=== PATIENT | male | born 1965 | race Caucasian/White ===

== ENCOUNTER 2020-09-14 14:09 | Outpatient (CLI) | payer BC, SELFPAY ==
--- NOTE | 2020-09-14 14:15 | ECG_ITS ---
Measurements Intervals [place] Rate: 73 P: 69 [place]: 167 QRS: 77 QRSD: 103 T: 26 QT: 372 QTc: 411 Interpretive Statements SINUS RHYTHM CANNOT RULE OUT SEPTAL INFARCT, AGE INDETERMINATE BORDERLINE ST-T WAVE ABNORMALITY- INFERIOR LEADS BASELINE ARTIFACT- I, III, AVL, V4-V6 ABNORMAL ECG Electronically Signed On 09-14-2020 14:36:38 CDT by Adalid Moralez D.O.
== END 2020-09-14 14:10 | disposition home or self-care (01) ==
LOC: ANHSURGERY 14:11
PROVIDERS: PCP Family Medicine Sports Medicine; Visit Provider Surgery
DX: K40.90 Unilateral inguinal hernia, without obstruction or gangrene, not specified as recurrent (principal); Z01.818 Encounter for other preprocedural examination; I10 Essential (primary) hypertension; R94.31 Abnormal electrocardiogram [ECG] [EKG]
CPT/HCPCS: 36415; 86850; 86900; 86901; 93005

== ENCOUNTER → 2020-09-16 00:16 | Outpatient (CLI) | payer BC, SELFPAY ==
[2020-09-16 19:13] LABS: SARS-CoV-2 RNA PCR Negative
== END ==
PROVIDERS: PCP Family Medicine Sports Medicine; Visit Provider Surgery
DX: Z01.812 Encounter for preprocedural laboratory examination (principal); Z20.822 Contact with and (suspected) exposure to COVID-19
CPT/HCPCS: C9803; U0003; U0005

== ENCOUNTER 2020-09-20 02:36 | Day surgery (SDC) | payer BC, SELFPAY ==
[2020-09-12 14:02] VITALS: BMI 25.4
[2020-09-20] VITALS (10 sets, daily range): BP systolic 126–151; BP diastolic 75–96; PULSE 50–66; RESP 10–20; TEMP 36.1; O2SAT 99–100
[2020-09-20] MEDS: ACETAMINOPHEN 500 MG TABLET 1000 MG PO (06:33)
[2020-09-20] MEDS: LACTATED RINGERS 1,000 ML 30 ML IV CONT ×2 (06:45→08:47)
[2020-09-20] MEDS: KETOROLAC 15 MG/ML VIAL (*BKC) IV PUSH (06:47)
--- NOTE | 2020-09-20 06:52 | WPDANESEPPF ---
Anes - Initial Pre Proc Eval Procedure: Operation Date: 09/20/20 07:30 Proposed Procedures p Laparoscopic Right Inguinal Hernia Repair with Mesh, Davinci Assisted - Ji Petersen DO Date/Time: 09/20/20 06:52 Surgeon: Ji Petersen DO Pre Op Diagnosis: right inguinal hernia Patient Data Age: 55 Gender: M Height: 6 ft 1 in Weight: 89.5 kg Allergies Allergy/AdvReac Type Severity Reaction Status Date / Time lisinopril AdvReac Mild Cough Verified 09/20/20 06:24 Home Medications Medication Instructions Recorded Confirmed Type irbesartan 300 mg tablet 300 mg PO DAILY 08/02/20 09/12/20 History omeprazole 40 mg capsule,delayed 40 mg PO DAILY 08/02/20 09/12/20 History release tamsulosin 0.4 mg capsule 0.4 mg PO DAILY 08/02/20 09/12/20 History testosterone 1 packet TRANSDERMAL DAILY 08/02/20 09/12/20 History Adult Probiotic 1 cap PO DAILY 09/12/20 09/12/20 History Calcium-Vitamin D 1 cap PO DAILY 09/12/20 09/12/20 History Daily Multivitamin 1 cap PO DAILY 09/12/20 09/12/20 History Fish Oil 1 cap PO DAILY 09/12/20 09/12/20 History turmeric 1 cap PO DAILY 09/12/20 09/12/20 History Patient hx anesthesia problems: none Family hx anesthesia problems: none PMFSH Past Medical History Medical History GERD (gastroesophageal reflux disease) High cholesterol History of bronchitis HTN (hypertension) Surgical History Surgical History History of carpal tunnel release History of colonoscopy Approximately 9 years ago Hx of decompression of ulnar nerve Hx of foot surgery Hx of left inguinal hernia repair Open left inguinal hernia repair Open recurrent left inguinal hernia repair with mesh Hx of right knee surgery Family History Family History Father MVA (motor vehicle accident) Mother Breast cancer Grandparent Breast cancer Stomach cancer Sibling Obesity Social History Social History Smoking status: Never smoker Alcohol intake: current Substance use: never Living arrangements: with family 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 Questions were solicited and answers provided to the satisfaction of the patient/family/POA.
--- NOTE | 2020-09-20 07:20 | WPDHPUPDATE1 ---
History and Physical Update Update Date/Time: 09/20/20 07:20 History and Physical has been reviewed, including an updated exam of the patient. There are NO changes in the patient's condition. Risks, benefits, and alternatives have been discussed and questions answered. Patient agrees to proceed with procedure.
--- NOTE | 2020-09-20 07:20 | PM.IMHP ---
H&P: HPI History of Present Illness Date/Time: 09/20/20 07:20 55 yo man presents for right inguinal hernia repair. No changes since last seen in office. Chief Complaint: [facility] Review of Systems Review of Systems: All systems reviewed & are unremarkable except as noted in HPI and below Constitutional: Constitutional: Denies chills, Denies fever(s), Denies headache(s) and Denies weight loss Eyes: Eyes: Denies change in vision ENT: Denies dizziness, Denies headache(s), Denies neck mass and Denies throat swelling Cardiovascular: Cardiovascular: Denies chest pain, Denies lightheadedness and Denies dyspnea Respiratory: Respiratory: Denies cough, Denies dyspnea and Denies wheezing Gastrointestinal: Gastrointestinal: Denies abdominal pain, Denies change in bowel habits, Denies nausea and Denies vomiting Genitourinary: Genitourinary: Denies hematuria and Denies dysuria Musculoskeletal: Musculoskeletal: Reports as per HPI Integumentary/Breasts: Skin/Breast: Reports as per HPI Neurologic: Denies dizziness and Denies headache(s) Allergic/Immunologic: Allergic/Immunologic: Denies throat swelling and Denies wheezing [facility] Past Medical History Medical History GERD (gastroesophageal reflux disease) High cholesterol History of bronchitis HTN (hypertension) Surgical History Surgical History History of carpal tunnel release History of colonoscopy Approximately 9 years ago Hx of decompression of ulnar nerve Hx of foot surgery Hx of left inguinal hernia repair Open left inguinal hernia repair Open recurrent left inguinal hernia repair with mesh Hx of right knee surgery Family History Family History Father MVA (motor vehicle accident) Mother Breast cancer Grandparent Breast cancer Stomach cancer Sibling Obesity Social History Social History Smoking status: Never smoker Alcohol intake: current Substance use: never Living arrangements: with family 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 Spiritual care concerns: No Meds Home Medications and Allergies Home Medications Medication Instructions Recorded Confirmed Type irbesartan 300 mg tablet 300 mg PO DAILY 08/02/20 09/12/20 History omeprazole 40 mg capsule,delayed 40 mg PO DAILY 08/02/20 09/12/20 History release tamsulosin 0.4 mg capsule 0.4 mg PO DAILY 08/02/20 09/12/20 History testosterone 1 packet TRANSDERMAL DAILY 08/02/20 09/12/20 History Adult Probiotic 1 cap PO DAILY 09/12/20 09/12/20 History Calcium-Vitamin D 1 cap PO DAILY 09/12/20 09/12/20 History Daily Multivitamin 1 cap PO DAILY 09/12/20 09/12/20 History Fish Oil 1 cap PO DAILY 09/12/20 09/12/20 History turmeric 1 cap PO DAILY 09/12/20 09/12/20 History Allergies Allergy/AdvReac Type Severity Reaction Status Date / Time lisinopril AdvReac Mild Cough Verified 09/20/20 06:24 Vital Signs Vital Signs - 24 hr 09/20/20 06:56 Temperature 36.1 C L Pulse Rate 59 L Respiratory Rate 16 Blood Pressure 147/75 H Pulse Oximetry 100 Exam Const: General: no acute distress and alert Orientation/consciousness: patient oriented x3 HENMT: Head: normocephalic and atraumatic Ears: hearing grossly normal bilaterally General nose exam: Normal nares present Mouth: Yes Normal oral and palatal mucosa present Eyes: Periorbital: periorbital findings normal Sclera: sclerae normal EOM: EOMs intact bilaterally Neck: Neck: normal visual inspection, no lymphadenopathy and trachea midline Chest: Chest palpation & inspection: normal inspection of the chest Resp: Effort & Inspection: normal respiratory effort Auscultation: clear to auscultation bilaterally Cardio: Jugular venous distension: no JVD Rate: regular rate Rhythm: regular rhy
[2020-09-20] MEDS: ceFAZolin 2 GM/D5W 50 ML 2 GM/50 ML BAG IVPB (07:27)
[2020-09-20] MEDS: BUPIVACAINE/EPINEPHRINE 0.5% 30 ML VIAL INFILTRATE (08:09)
--- NOTE | 2020-09-20 08:54 | PM.PROC ---
Procedure Note - Detailed Date of procedure: 09/20/20 Pre-op diagnosis: right inguinal hernia Post-op diagnosis: same (Indirect RIH) Procedure performed: Laparoscopic right inguinal hernia repair with Progrip mesh, da Gisella assisted Description of procedure: Procedure as well as risks, benefits, and alternatives were discussed with the patient. Written consent was obtained and placed in chart prior to procedure. Patient was brought back to surgical suite. He was placed supine on operating table. Time-out was done to confirm patient and procedure. he was then intubated by Anesthesia Department. his abdomen was prepped and draped in sterile fashion using chlorhexidine prep. 0.5% bupivacaine with epinephrine was infiltrated at each location for incision. A 12 millimeter transverse incision was made just superior to the umbilicus using a 15 blade scalpel. Blunt dissection was carried out down to the linea alba. A vertical incision was made at the linea alba using a 15 blade scalpel. The peritoneum was then bluntly entered. A 12 millimeter trocar was inserted and carbon dioxide insufflation was used to create a pneumoperitoneum. A camera was inserted and the abdominal cavity was inspected. The patient was placed in slight Trendelenburg position. An 8 millimeter incision was made on the right lateral abdomen and an 8 millimeter trocar was inserted under direct visualization. Another 8 millimeter incision was made in the left lateral abdomen and an 8 millimeter trocar was inserted under direct visualization. The robotic arms were brought up to the patient's bedside and secured to the ports. The camera and instruments were inserted. I then moved over to the robotic console and took control of the camera and instruments. After careful inspection of the abdominal cavity, I began scoring the peritoneum along the right lower quadrant using scissors with electrocautery. The preperitoneal plane was entered and this was carefully dissected caudally along the inferior epigastric vessels. Careful dissection with scissors with electrocautery and blunt dissection was used to continue this dissection. I dissected far enough laterally to allow for mesh placement, and also dissected medially to identify the pubic arch and Noel's ligament. The hernia sac was identified and carefully dissected posteriorly. The cord contents were also identified and the peritoneum was carefully dissected far enough posteriorly to allow for mesh placement. Once an adequate pocket was created, I then placed the mesh within the preperitoneal pocket and carefully unfolded it. The mesh was centered on the hernia defect with adequate overlap circumferentially. The inferior edge of the mesh was inspected to ensure that it was far enough away from the peritoneal edge. The mesh appeared in proper position overlying the entire myopectineal orifice. The peritoneum was then closed over the mesh using a 3-0 V-lock running absorbable suture. The robotic instruments were removed. The robotic arms were disengaged from the ports and moved away from the bedside. The patient was flattened out in bed, the ports were removed under direct visualization, and the pneumoperitoneum was released. The fascia of the umbilical incision was approximated using an 0 Vicryl [id number] suture. The skin of the incisions was approximated using 4-0 Monocryl subcuticular suture, and Exofin glue was applied on top. The patient was awakened from anesthesia, extubated, and transferred to recovery. Implants: Progrip Mesh 10cm x 15cm Anesthesia: GETA and local (0.5% bupivicaine with epi) Surgeon: Ji Petersen DO Estimated blood loss (mL): 5 Drains: No Packing: No Pathology: none sent Complications: No immediate complications Condition: stable Disposition: same day Findings: this is a 55-year-old man who presented with right groin pain for the past 9-10 months. He was noticing worsening symptoms with acti
[2020-09-20] MEDS: fentaNYL CITRATE INJ (*CRX) 100 MCG/2 ML VIAL 25 MCG IV PUSH ×2 (09:23→09:28)
[2020-09-20] MEDS: oxyCODONE HCL (*CRX) 5 MG TAB IR PO (10:09)
== END 2020-09-20 11:38 | disposition home or self-care (01) ==
PROVIDERS: PCP Family Medicine Sports Medicine; Referring Provider Family Medicine Sports Medicine; Visit Provider Surgery
PROC: 8E0Y4CZ Robotic Assisted Procedure of Lower Extremity, Percutaneous Endoscopic Approach (ICD-10-PCS; CPT 49650; principal; 2020-09-20 07:30)
DX: K40.90 Unilateral inguinal hernia, without obstruction or gangrene, not specified as recurrent (principal); I10 Essential (primary) hypertension; E78.00 Pure hypercholesterolemia, unspecified; K21.9 Gastro-esophageal reflux disease without esophagitis
CPT/HCPCS: 49650; S2900; 36415; 86850; 86900; 86901; 93005; A9270; C1781; C9803; J0690; J1100; J1885; J2250; J2405; J2704; J2710; J3010; J7030; J7120; U0003; U0005

== ENCOUNTER 2024-01-07 15:45 | Outpatient (RCR) | payer BC, SELFPAY ==
--- NOTE | 2023-10-09 16:22 | PTOPDC ---
Assessment and note entered by Bolivar Sandra, PT Evaluation Information Assessment Status Evaluation Diagnosis Low back pain with radiculopathy Onset 2020 Subjective Information Reports that pain significantly worsened this July with radiculopathy into left leg. Has good days and bad days based on movement and activity. Pain is entirely left sided. Pain goes away with sitting but depends on the position and chair. A high plat back chair hurts him to sit in. Was losing a lot of sleep in July but has improved a bit. Has a high bed and would have pain if he rushed getting up in the morning or getting up in the wrong position. Reports that he has had history of 2 meniscectomy on his right side. Reported Pain Level Pain Score 2: Self Report Assessment PT Clinical Summary Patient presents with sings and symptoms consistent with discogenic nerve involvement on the left side. Showing some potential for stenotic issues as well based on spinal level. Poor hip mobility and left hip stability leading to increased load transfer into left side of lumbar spine. Plan of Care PT Services Indicated Yes
--- NOTE | 2023-10-09 16:24 | OPREHPOC ---
Outpatient Therapy Plan of Care This is a Multidisciplinary Plan of Care that may contain components documented by all disciplines (PT, OT, and ST.) PT Problem 1 PT Problem #1 Knowledge Deficit PT Goal 1 Goal Patient will be independent with HEP for hip mobility and core stabilization Target Visit 4 PT Problem 2 PT Problem #2 Pain PT Goal 1 Goal Report 0/10 pain with squat lift of 20# x 5 for proper hip hinge and injury prevention Target Visit 8 PT Problem 3 PT Problem #3 Impaired Flexibility PT Goal 1 Goal Demonstrate -15 degrees hamstring 90/90 test for reduction in posterior chain pull in hips PT Goal 2 Goal Demonstrate minimal ishmael piriformis restriction to allow for improved hip ROM with ADL performance Target Visit 8 PT Problem 4 PT Problem #4 Impaired Strength PT Goal 1 Goal Improve L hip abduction strength tp 4+/5 to improve pelvic stability with walking and ADLs Target Visit 8 PT Goal 2 Goal Improve L hip flexion strength to 4+/5 to improve foot clearance and anterior stability with ADL performance Target Visit 8 PT Problem 5 PT Problem #5 Impaired Gait PT Goal 1 Goal Ambulate with even terminal stance bilaterally Target Visit 8
--- NOTE | 2023-11-06 15:45 | PTOPPROG ---
Assessment and note entered by Bolivar Sandra, PT Evaluation Information Assessment Status Progress Diagnosis Low back pain with radiculopathy Onset 2020 Subjective Information Reports that overall he is better. He continues to see increases in pain with initiation of gait from chair. Feels that there is still something structural in his back that is limiting him from functional activity. Followed up with MD to plan for injection in spine. Assessment PT Clinical Summary Patient has seen objective improvement in hip ROM, Hip strength, and functional mobility. Continues to show some weakness and restriction and will continue to benefit from skilled therapy to address deficits. Overall he is still susceptible to agitation with spinal motion and needs to continue to improve core stability and gross hip motion. Plan of Care Interventions Electrical Stimulation,Hot Pack/Cold Pack,Manual Therapy,Mechanical Traction,Neuro Re-education, Therapeutic Activities,Therapeutic Exercise PT Services Indicated Yes Treatment Frequency and 1-2x/week for 8 visits Duration These treatments will address the objective and functional deficits as defined above. The patient will be advanced safely and appropriately in order for the patient to progress towards his/her prior level of function. Additional exercises will be introduced and as well as a comprehensive home exercise program upon discharge, if needed, ?to ensure carryover of functional gains achieved in the clinic. This treatment plan has been reviewed and agreement upon by the patient.
--- NOTE | 2023-11-06 15:45 | OPREHPOC ---
Outpatient Therapy Plan of Care This is a Multidisciplinary Plan of Care that may contain components documented by all disciplines (PT, OT, and ST.) PT Problem 1 PT Problem #1 Knowledge Deficit PT Goal 1 Goal Patient will be independent with HEP for hip mobility and core stabilization Target Visit 4 Progress Met PT Problem 2 PT Problem #2 Pain PT Goal 1 Goal Report 0/10 pain with squat lift of 20# x 5 for proper hip hinge and injury prevention Target Visit 16 Progress Partially Met PT Problem 3 PT Problem #3 Impaired Flexibility PT Goal 1 Goal Demonstrate -15 degrees hamstring 90/90 test for reduction in posterior chain pull in hips Target Visit 8 Progress Met PT Goal 2 Goal Demonstrate minimal ishmael piriformis restriction to allow for improved hip ROM with ADL performance Target Visit 16 Progress Partially Met PT Problem 4 PT Problem #4 Impaired Strength PT Goal 1 Goal Improve L hip abduction strength tp 4+/5 to improve pelvic stability with walking and ADLs Target Visit 16 Progress Partially Met Comment Improved PT Goal 2 Goal Improve L hip flexion strength to 4+/5 to improve foot clearance and anterior stability with ADL performance Target Visit 8 Progress Met PT Problem 5 PT Problem #5 Impaired Gait PT Goal 1 Goal Ambulate with even terminal stance bilaterally Target Visit 8 Progress Partially Met Comment Improve post mobilization
--- NOTE | 2023-12-09 15:59 | PCPTNOTE ---
Patient cancelled working late
--- NOTE | 2024-01-07 17:59 | PTOPPROG ---
Assessment and note entered by Amaya Ibrahim, PT Progress Information Assessment Status Progress Diagnosis Low back pain with radiculopathy Onset 2020 Subjective Information Reports that overall he is better. He continues to see increases in pain with initiation of gait from chair. Feels that there is still something structural in his back that is limiting him from functional activity. Followed up with MD to plan for injection in spine. Assessment PT Clinical Summary Pt demos good improvement with PT, however, he experienced a setback 4 weeks ago and the pain has persisted, reports that he is unable to perform HEPs lately due to travelling around. Pt states cont to experience pain to back radiating to L lateral thigh and calf muscles, aggravated when standing and ambulation for prolonged period of time. He will benefit from continued skilled PT to address remaining deficits in weakness, postural and mobility awareness, proper body mechanics, proper lifting techniques, and ADLs painfree. Plan of Care Interventions Electrical Stimulation,Gait Training,Hot Pack/Cold Pack,Manual Therapy,Neuro Re-education,Patient/ Caregiver Education,Therapeutic Activities, Therapeutic Exercise,Ultrasound Other Interventions IASTM, Dry Needling PT Services Indicated Yes Treatment Frequency and 2x/wk x 10 visits Duration These treatments will address the objective and functional deficits as defined above. The patient will be advanced safely and appropriately in order for the patient to progress towards his/her prior level of function. Additional exercises will be introduced and as well as a comprehensive home exercise program upon discharge, if needed, ?to ensure carryover of functional gains achieved in the clinic. This treatment plan has been reviewed and agreement upon by the patient.
--- NOTE | 2024-02-12 08:37 | PTOPDC ---
Assessment and note entered by Bolivar Sandra, PT Evaluation Information Assessment Status Discharge Diagnosis Low back pain with radiculopathy Onset 2020 Subjective Information Reports that overall he is better. He continues to see increases in pain with initiation of gait from chair. Feels that there is still something structural in his back that is limiting him from functional activity. Followed up with MD to plan for injection in spine. Assessment PT Clinical Summary Pt demos good improvement with PT, however, he experienced a setback 4 weeks ago and the pain has persisted, reports that he is unable to perform HEPs lately due to travelling around. Pt states cont to experience pain to back radiating to L lateral thigh and calf muscles, aggravated when standing and ambulation for prolonged period of time. He will benefit from continued skilled PT to address remaining deficits in weakness, postural and mobility awareness, proper body mechanics, proper lifting techniques, and ADLs pain free. Plan of Care PT Services Indicated D/C to HEP
== END 2024-01-07 23:59 | disposition home or self-care (01) ==
LOC: ANHPT 15:45
PROVIDERS: PCP Family Medicine Sports Medicine
DX: M54.16 Radiculopathy, lumbar region (principal)
CPT/HCPCS: 97035; 97110; 97112; 97140; 97161; 97530; 97750

== ENCOUNTER 2024-01-08 14:46 | Outpatient (CLI) | payer BC, SELFPAY ==
[2024-01-08 15:03] LABS: Basophils Percent Auto 0.4 % (0.2-1.2); Eosinophils Absolute Auto 0.2 K/mm3 (0-0.3); Eosinophils Percent Auto 2.5 % (0-4.4); Hematocrit 44.2 % (42.0-52.0); Hemoglobin 14.8 g/dL (14.0-18.0); Immature Granulocyte Absolute 0.03 K/mm3 (0.00-0.031); Immature Granulocyte Percent A 0.4 % (0-0.5); Lymphocytes Absolute Auto 1.76 K/mm3 (0.9-3.2); Lymphocytes Percent Auto 23.2 % (18.3-44.2); Mean Corpuscular HGB Conc 33.5 g/dl (32-36); Mean Corpuscular Volume 86.7 fl (80-100); Mean Platelet Volume 10.4 fl (7.4-10.4); Monocytes Absolute Auto 0.9 K/mm3 (0.1-0.6); Monocytes Percent Auto 12.4 % (2.6-8.5); Neutrophils Absolute Auto 4.7 K/mm3 (1.3-6.7); Neutrophils Percent Auto 61.1 % (45.5-73.1); Platelet Count Result 207 k/mm3 (150-375); Red Cell Distribution Width 12.7 % (11.5-14.5); White Blood Count 7.6 K/mm3 (4.5-10.0)
[2024-01-08 16:36] LABS: Iron 75 ug/dL (49-181)
[2024-01-08 16:37] LABS: Alanine Aminotransferase 25 U/L (6-50); Albumin Level 4.6 g/dL (3.5-5.1); Alkaline Phosphatase 47 U/L (38-126); Anion Gap 9 mmol/L (4-12); Aspartate Amino Transferase 31 U/L (17-59); Bilirubin,Total 0.6 mg/dL (0.2-1.3); Blood Urea Nitrogen 18 mg/dL (9-20); Calcium 9.3 mg/dL (8.4-10.2); Carbon Dioxide 33 mmol/L (22-30); Chloride 98 mmol/L (98-107); Estimated Glomerular Filt Rate 48; Glucose 98 mg/dL (65-110); Lactate Dehydrogenase 189 U/L (120-246); Potassium 3.4 mmol/L (3.4-5.0); Sodium 140 mmol/L (137-145)
[2024-01-08 16:48] LABS: Percent Iron Saturation 22 % (20-50)
[2024-01-08 17:40] LABS: Folic Acid 11.2 ng/mL (2.76->20)
[2024-01-13 07:53] LABS: Methylmalonic Acid 173 nmol/L (69-390)
[2024-01-14 09:09] LABS: Soluble Transferrin Receptor 1.25 mg/L (0.76-1.76)
== END 2024-01-08 14:47 | disposition home or self-care (01) ==
LOC: ANHLAB 14:49
PROVIDERS: Nurse Practitioner Family; PCP Family Medicine Sports Medicine; Visit Provider Internal Medicine Hematology & Oncology
DX: R79.0 Abnormal level of blood mineral (principal)
CPT/HCPCS: 36415; 80053; 82607; 82728; 82746; 83540; 83550; 83615; 83921; 84238; 85025

== ENCOUNTER 2024-03-26 12:31 | Outpatient (CLI) | payer BC, SELFPAY ==
--- NOTE | 2024-03-26 | ECG_ITS ---
Test Date: 2024-03-26 13:02:50 Measurements Intervals [place] Rate: 69 P: 67 MD: 174 QRS: 71 QRSD: 98 T: 6 QT: 375 QTc: 402 Interpretive Statements SINUS RHYTHM WITH MARKED SINUS ARRHYTHMIA CANNOT R/O SEPTAL INFARCT, AGE INDETERMINATE BORDERLINE ST-T WAVE ABNORMALITY- INFERIOR LEADS ABNORMAL ECG No previous ECG available for comparison Electronically Signed On 03-26-2024 13:28:34 CDT by Adalid Moralez D.O.
== END 2024-03-26 12:32 | disposition home or self-care (01) ==
LOC: ANHCARD 12:33
PROVIDERS: PCP Family Medicine Sports Medicine; Visit Provider Nurse Practitioner
DX: Z01.818 Encounter for other preprocedural examination (principal); R94.31 Abnormal electrocardiogram [ECG] [EKG]
CPT/HCPCS: 93005

== ENCOUNTER 2024-05-20 10:04 | Outpatient (CLI) | payer BC, SELFPAY ==
[2024-05-20 10:20] LABS: Basophils Percent Auto 0.3 % (0.2-1.2); Eosinophils Absolute Auto 0.3 K/mm3 (0-0.3); Hematocrit 42.7 % (42.0-52.0); Hemoglobin 14.5 g/dL (14.0-18.0); Immature Granulocyte Absolute 0.03 K/mm3 (0.00-0.031); Immature Granulocyte Percent A 0.4 % (0-0.5); Lymphocytes Absolute Auto 1.02 K/mm3 (0.9-3.2); Mean Corpuscular Volume 88.4 fl (80-100); Monocytes Absolute Auto 0.7 K/mm3 (0.1-0.6); Monocytes Percent Auto 10.1 % (2.6-8.5); Neutrophils Absolute Auto 4.7 K/mm3 (1.3-6.7); Neutrophils Percent Auto 69.2 % (45.5-73.1); Platelet Count Result 191 k/mm3 (150-375); Red Blood Count 4.83 M/mm3 (4.6-6.20); Red Cell Distribution Width 13.3 % (11.5-14.5); White Blood Count 6.8 K/mm3 (4.5-10.0)
[2024-05-20 12:55] LABS: Iron 90 ug/dL (49-181)
[2024-05-20 13:05] LABS: Percent Iron Saturation 28 % (20-50)
[2024-05-20 13:28] LABS: Anion Gap 3 mmol/L (4-12); Blood Urea Nitrogen 15 mg/dL (9-20); Calcium 9.2 mg/dL (8.4-10.2); Carbon Dioxide 35 mmol/L (22-30); Chloride 99 mmol/L (98-107); Estimated Glomerular Filt Rate > 60; Glucose 132 mg/dL (65-110); Potassium 3.8 mmol/L (3.4-5.0); Sodium 137 mmol/L (137-145)
== END 2024-05-20 10:05 | disposition home or self-care (01) ==
LOC: ANHLAB 10:05
PROVIDERS: PCP Family Medicine Sports Medicine; Visit Provider Internal Medicine Hematology & Oncology
DX: R79.0 Abnormal level of blood mineral (principal)
CPT/HCPCS: 36415; 80048; 82607; 82728; 83540; 83550; 85025

== ENCOUNTER 2024-11-04 13:31 | Emergency (ER) | payer BC, SELFPAY ==
--- NOTE | ~2024-11-04 | CT_ITS ---
EXAMINATION: CT lumbar spine wo con DATE: 11/04/2024 14:34 INDICATION: Left back pain radiating down the leg. TECHNIQUE: Computed tomography (CT) of the lumbar spine was performed without intravenous contrast. A utomated exposure control and iterative reconstruction technique were employed. The dose-length produ ct was 867.99 mGy-cm. COMPARISON: None FINDINGS: 10 degrees lumbar levoscoliosis. Mild upper lumbar kyphosis resulting from moderate disc height loss at L2-L3 and chronic appearing mild anterior wedging at L1 and L2. Remaining vertebral body heights a re normal. Small Schmorl's node along the posterior superior endplate of L3 as well as at the posteri or inferior endplate of L4. Additional moderate disc height loss at L5-S1, mild to moderate right-heidi ed prominent disc height loss at L3-L4 and mild disc height loss at L4-L5. Postoperative changes of p rior right-sided hemilaminotomy at L2-L3 and left-sided hemilaminotomy L4-L5. Paravertebral soft tiss ues are unremarkable. The following disc levels are specifically discussed: T12-L1: Disc is mildly bulging. There is severe bilateral facet joint osteoarthritis. There is mild l eft neural foraminal stenosis. There is minimal central canal stenosis. L1-L2: Disc is mildly bulging. There is severe left and moderate right facet joint osteoarthritis. Th ere is no neural foraminal stenosis. There is mild central canal stenosis. L2-L3: Disc is bulging with heterotopic opacification along the posterior disc margin. There is mild right and mild to moderate left facet joint osteoarthritis. There is mild left and moderate right fabricio ral foraminal stenosis. There is mild central canal stenosis with right-sided posterior decompression . L3-L4: Disc is bulging. There is mild bilateral facet joint osteoarthritis. There is mild left and mi ld to moderate right neural foraminal stenosis. There is mild central canal stenosis. L4-L5: Disc is bulging with L4 inferior endplate osteophyte along its posterior margin. There is mild bilateral facet joint osteoarthritis. There is moderate left and mild to moderate right neural graciela inal stenosis. There is mild central canal stenosis with left-sided posterior decompression. L5-S1: Disc is mildly bulging with small superimposed left paracentral disc protrusion. There is mild to moderate bilateral facet joint osteoarthritis. There is moderate bilateral neural foraminal steno sis. There is minimal central canal stenosis. IMPRESSION: 1. 10 degrees lumbar levoscoliosis with moderate spondylosis. 2. Change of prior L2-L3 right hemilaminectomy and L4-L5 left-sided hemilaminectomy. Reviewed, dictated and finalized at location A. IMPRESSION: 1. 10 degrees lumbar levoscoliosis with moderate spondylosis. 2. Change of prior L2-L3 right hemilaminectomy and L4-L5 left-sided hemilaminec kurtis.
--- OUTSIDE RECORDS SUMMARY | 2024-11-04 13:34 | XMS_ITS | Clinical Summary ---
Author Organization [facility] Address [address] [place] [address] Care Team Providers Care Apartment Maintenance Supervisor Name Role Phone Unavailable Primary Care Provider Unavailabl e Source Comments [facility],non-owned Affiliates and Associated Physician Practices is amultiple site organization consisting of ambulatory clinics and hospital sitesin [place], [place], [place] and [place]. This disclosure is being madepursuant to the Care Everywhere program and may not contain all information available regarding this patient. 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 Gender Identity Not on file Sexual Orientation Not on file Plan of Treatment Health Maintenance Due Date Last Done Comments COLOGUARD (AGES 45-75) - COL ON CA SCREENING 1963 COLON MONITORING 1963 COLONOSCOPY - COLON CA SCREENING 1963 CT COLONOGRAPHY - COLON CA SCREENING 1963 Colorectal Cancer Screening 1963 FIT - COLON CA SCREENING 1963 FLEX SIG - COLON CA SCREENING 1963 LIPID TESTING 1963 HIV SCREENING 1978 HEPATITIS C SCREENING 05/11/1981 DTAP/TDAP/TD VACCINES (1 - Tdap) 1982 PNEUMOCOCCAL VACCINE 50+ (1 of 1 - PCV) 2013 ZOSTER VACCINE (1 of 2) 2013 COVID-19 VACCINE ( - 2023-2 5 season) 2024 DEPRESSION SCREENING 06/30/2024 INFLUENZA VACCINE (Season Ended) 2025 Respiratory Syncytial Virus (RSV) Vaccine Pt: or over 60 yrs (1 - 1-dose 75+ series) 2038 HEPATITIS B VACCINE Aged Out No longe r eligible based on patient's age to complete this topic HIB VACCINE Aged Out No longer eligi ble based on patient's age to complete this topic HPV VACCINE Aged Out No longer eligi ble based on patient's age to complete this topic MENINGOCOCCAL (Group B) VACC INE SHARED DECISION-MAKING Aged Out No longer eligibl e based on patient's age to complete this topic MENINGOCOCCAL GROUPS A/C/Y/W VACCINE Aged Out No longer eligible b ased on patient's age to complete this topic
--- OUTSIDE RECORDS SUMMARY | 2024-11-04 13:34 | XMS_ITS | Clinical Summary ---
[facility] Organization [facility] Address [address] [place] [address] Care Team Providers Care Childcare Center Director Name Role Phone Williams Hoover MD Primary Care Provider [phone] Allergies Active Allergy Reactions Criticality Noted Date Comments Amlodipine Swelling Low 01/08/2024 Medications carvediloL (COREG) 6.25 mg tablet TAKE 1 TABLET BY MOUTH EVERY 12 HOURS WITH FOOD Active ferrous sulfate 325 mg (65 mg iron) tablet Take 1 Tablet by mouth 2 times daily. Active Irbesartan (AVAPRO) 300 mg tablet Take 1 Tablet by mouth daily. Active omeprazole (PriLOSEC) 40 mg Capsule, Delayed Release(E.C.) Take 1 Capsule by mouth daily. Active tamsulosin (FLOMAX) 0.4 mg capsule Take 1 Capsule by mouth daily. Active testosterone cypionate (DEPO-TESTOSTE MARCK) 200 mg/mL Oil INJECT 1 MILLILITER INTRAMUSCULARLY ONCE A WEEK Active Active Problems No known active problems Family History Medical History Relation Name Comments No Known Problems Brother No Known Problems Child 1 No Known Problems Child 2 Breast Cancer Mother No Known Problems Sister Relation Name Status Comments Brother Alive Child 1 Alive Child 2 Alive Father Mother Alive Sister Alive Social History Tobacco Use Types Packs/Day Years Used Date Smoking Tobacco: Never Smokeless Tobacco: Never Tobacco Cessation:Counseling Given: Not Answered Alcohol Use Standard Drinks/Week Comments Yes 0 (1 standard drink = 0.6 oz pur e alcohol) Socially Sex and Gender Information Value Date Recorded Sex Assigned at Not on file Legal Sex Male 3:08 PM CDT Gender Identity Not on file Sexual Orientation Not on file Last Filed Vital Signs Vital Sign Reading Time Taken Comments Blood Pressure 139/90 05/25/2024 2:30 PM [facility] Pulse 77 05/25/2024 2:25 PM [facility] Temperature 36.8 C (98.2 F) 05/25/2024 2:25 PM [facility] Respiratory Rate 14 01/08/2024 2:16 PM CDT Oxygen Saturation 96% 05/25/2024 2:25 PM [facility] Inhaled Oxygen Concentration - - Weight 107.9 kg (237 lb 12.8 oz) 05/25/2024 2:25 PM [facility] Height 185.4 cm (6' 1 ) 01/08/2024 2:16 PM CDT Body Mass Index 31.37 01/08/2024 2:16 PM CDT Plan of Treatment Upcoming Encounters Date Type Department Care Team (Late st Contact Info) Description 02/22/2025 3:45 PM CDT Office Visit [facility] Oncology and Hematology [facility] [address] [place] [address] Charles Whitt MD [address] [address] [place] [address] Health Maintenance Due Date Last Done Comments Pre-Diabetes and Diabetes Screening 1965 DTAP/TDAP/TD VACCINES (1 - Tdap) 1982 COLORECTAL SCREENING 2008 Colorectal Cancer Screening 2008 FIT-DNA Q 3 years 2008 FIT/FOBT Q 1 year 2008 Flex Sig/CT Colonography Q 5 years 2008 ZOSTER VACCINE (1 of 2) 2013 INFLUENZA VACCINE (#1) 2024 RSV VACCINE (60+ or ) (1 - 1-dose 75+ series) 2038 Insurance [facility] BLUE ACCESS/TRUE BLUE PPO Care Teams Childcare Center Director Relationship Specialty Start Date End Date Williams Hoover MD [address] [facility] [address] [place] [address] PCP - General Pulmonology 12/15/23
--- OUTSIDE RECORDS SUMMARY | 2024-11-04 13:34 | XMS_ITS | Data Portability ---
Author Organization [place] - [facility], Main Office Address [address] [place] [address] Assessment Encounter Date Assessment Date Assessment LastModified by Organization Details LastModified Time 06/09/2023 06/09/2023 Assessment: Early REM onset Very severe OSAHS, AHI = 58 PLMD Iron deficiency Plan: The following were reviewed and explained to the patient: [facility] home sleep study 03/27/23 AHI = 58, supine AHI = 65 [facility] titration sleep study 04/25/23 sleep onset = 8 minutes, REM onset = 37.5 minutes, ResMed medium AirFit N30i nasal mask @ 11 cmH2O, PLMI = 36 Ferritin 05/19/23 32 ng/mL Non-pharmacologic therapy options for periodic limb movement disorder include avoidance of aggravating drugs and substances, mental alerting activities, short daily hemodialysis for patients in renal failure, exercise, leg massage, stretching calf muscles, use of a weighted blanket and applied heat. Patient will cut down on alcohol consumption, nicotine use and caffeine intake. BUN, Creatinine, Vitamin E, Vitamin B12, RBC folate, Iron, TIBC, ESR, Magnesium, Hgb and Hct levels are within normal limits. Patient will take FeSO4 325 mg + Vit C 500 mg daily to keep the ferritin > 75 ng/ml. Check ferritin one week before return. We will hold off on dopaminergic therapy for now. Educated the patient on problems and solutions associated with positive airway pressure (PAP) use. Difficulty tolerating pressure, mask leaks, intolerance of interface, nasal congestion, claustrophobic response, dry mouth, and unintentional mask removal during sleep were covered. Patient experiences claustrophobic response. Patient will practice wearing PAP mask daily while awake and undergo PAP desensitization. We will check fit of patient's mask and provide a sleeker alternative as necessary. Dry mouth is a normal occurrence for people who just start out on PAP therapy because they are not used to air blowing in to the throat to hold open. Dry mouth is exacerbated for people who wear nasal PAP mask and whose jaw drops open during sleep. Not only does this create a much less efficient therapy because of leakage, it also causes dry mouth. There are a couple solutions to help prevent this type of problem. A simple solution would be to wear a chinstrap which essentially holds the jaw in place. A second solution would be a switch to a full face mask which covers both the nose and mouth. Although this is another easy solution, using a full face mask for some could seem claustrophobic or confining. There is no silver bullet solution as no single mask is right for everybody. Sometimes it takes a bit of experimentation to find a PAP mask which best meets the patient's needs as well as fits comfortably. Another tactic is to use a humidifier on your PAP machine. Most new PAP machines have integrated humidifiers. Humidification is everett when dealing with symptoms of dry mouth because the humidifier can supply both warm and room temperate air. Even a small amount of humidity in the airflow will help nasal passages to stay hydrated. If a person is using both a full face mask and a PAP machine with a heated humidifier and is still experiencing dry mouth, an ill-fitted PAP mask might be causing the problem. Leakage can be caused by a mask that is to large or small, the wrong style mask, the cushion is degraded or simply because the mask's straps aren't adjusted correctly. If leakage occurs, dry air from the room can leak in while humidification escapes. The result is reduced humidification within the circuit and resulting in dry throat and mouth. Finally, beyond factors involving the PAP machine and mask, dry mouth can also be caused or worsened by dehydration. The general recommendation to during eight 8 oz. glasses of water a day might be too little for many people. When people drink large amounts of coffee or other caffeine beverages, or sweat a lot during the day, making sure to rehydrate is an important part of PAP therapy. ResMed Air Sense 11 auto set unit with heated humidifier, supplies, ResMed medium AirFit N30i nasal mask @ 11 cmH2O ordered. Further titration will be based on clinical response. Provided the patient with a list of local home care stores where positive airway pressure (PAP) units, accoutrement, and services are available. Home care store selection is based on patient's insurance carrier. Patient will setup an appointment with [facility] for supplies and pressure adjustments. A major predictor of success with use of PAP is follow-up with both the respiratory supplier and the treating physician. The respiratory supplier optimally will follow-up within two weeks after starting use while the treating physician optimally will follow-up within 90 days after starting therapy to assess adherence and effectiveness of treatment. The download results can show the treating physician information about adherence to treatment, residual AHI while on treatment and presence of large mask leakage. This information is especially helpful if the patient has residual sleepiness despite treatment. General information on sleep disordered breathing, evaluation of sleep disordered breathing, treatment with PAP therapy, and living with PAP therapy were covered. We discussed with the patient the impact of weight on: Sleep disordered breathing Hypertension Hyperlipidemia Prediabetes JAMIE We discussed with the patient the benefit of PAP therapy on: Sleep disordered breathing Hypertension Prediabetes JAMIE Educated the patient on sleep hygiene measures. Relaxing rituals to rest easy, understanding foods with positive and negative impact on sleep, creating a peaceful sleep environment, timing of exercise, using herbal sleep aids, and practicing sleep-friendly meditation were covered. To determine how much sleep is needed, the patient will assess where he falls on the spectrum, examine what lifestyle factors such as work schedules and stress are affecting the quality and quantity of sleep. In general, adults need 7-9 hours of sleep. Educated the patient regarding foods that promote sleep. These include but are not limited to cherries, bananas, toast, oatmeal, and warm milk. Educated the patient regarding foods and drinks to avoid before bedtime. These include but are not limited to aged cheese, chocolate, spicy foods, tomato-based sauces, soy, ginseng tea and processed meat. Advocated influenza vaccination annually and pneumonia vaccination in 2027. Advocated weight loss through diet and exercise. Patient's ideal body weight according to height and gender is up to 200 lbs. Encouraged patient to adjust caloric intake to maintain/achieve ideal body weight, emphasizing on fruits, vegetables, whole grains, and fat-free or low-fat products. These include lean meats, poultry, fish, beans, eggs, and nuts and foods that are low in saturated fats, trans-fats, cholesterol, salt (sodium), and glycemic index. Stressed the importance of regular exercise up to the patient's capacity limits. In this case, we recommend 20 min daily walking, 2 days a week of resistance training. Patient to monitor BP daily and bring records to PCP for further management. Follow-up: 3 months, August 2023 Not available 06/09/2023 16:09:08 09/08/2023 09/08/2023 Assessment: Early REM onset Very severe OSAHS, AHI = 58 PLMD Iron deficiency Plan: The following were reviewed and explained to the patient: [facility] home sleep study 03/27/23 AHI = 58, supine AHI = 65 [facility] titration sleep study 04/25/23 sleep onset = 8 minutes, REM onset = 37.5 minutes, ResMed medium AirFit N30i nasal mask @ 11 cmH2O, PLMI = 36 Ferritin 05/19/23 32 ng/mL Ferritin 08/11/23 27 ng/mL PAP compliance downloaded and interpreted x 20 minutes. Data reviewed and explained to the patient. Average apnea/hypopnea index (AHI) is 1.4. Patient used PAP > 4 hours 76% of the time. PAP is set at 11 cmH2O. PAP will remain at 11 cmH2O. Oxygen supplementation: none Patient is benefiting from PAP therapy. Encouraged patient to maintain PAP use more than 70% of the time. Statement of PAP use and benefits will be sent to the home care store. Non-pharmacologic therapy options for periodic limb movement disorder include avoidance of aggravating drugs and substances, mental alerting activities, short daily hemodialysis for patients in renal failure, exercise, leg massage, stretching calf muscles, use of a weighted blanket and applied heat. Patient will cut down on alcohol consumption and caffeine intake. BUN, Creatinine, Vitamin E, Vitamin B12, RBC folate, Iron, TIBC, ESR, Magnesium, Hgb and Hct levels are within normal limits. Patient will take FeSO4 325 mg + Vit C 500 mg daily to keep the ferritin > 75 ng/ml. Check ferritin one week before return. We will hold off on dopaminergic therapy for now. Educated the patient on problems and solutions associated with positive airway pressure (PAP) use. Difficulty tolerating pressure, mask leaks, intolerance of interface, nasal congestion, claustrophobic response, dry mouth, and unintentional mask removal during sleep were covered. Patient experiences claustrophobic response. Patient will practice wearing PAP mask daily while awake and undergo PAP desensitization. We will check fit of patient's mask and provide a sleeker alternative as necessary. Dry mouth is a normal occurrence for people who just start out on PAP therapy because they are not used to air blowing in to the throat to hold open. Dry mouth is exacerbated for people who wear nasal PAP mask and whose jaw drops open during sleep. Not only does this create a much less efficient therapy because of leakage, it also causes dry mouth. There are a couple solutions to help prevent this type of problem. A simple solution would be to wear a chinstrap which essentially holds the jaw in place. A second solution would be a switch to a full face mask which covers both the nose and mouth. Although this is another easy solution, using a full face mask for some could seem claustrophobic or confining. There is no silver bullet solution as no single mask is right for everybody. Sometimes it takes a bit of experimentation to find a PAP mask which best meets the patient's needs as well as fits comfortably. Another tactic is to use a humidifier on your PAP machine. Most new PAP machines have integrated humidifiers. Humidification is everett when dealing with symptoms of dry mouth because the humidifier can supply both warm and room temperate air. Even a small amount of humidity in the airflow will help nasal passages to stay hydrated. If a person is using both a full face mask and a PAP machine with a heated humidifier and is still experiencing dry mouth, an ill-fitted PAP mask might be causing the problem. Leakage can be caused by a mask that is to large or small, the wrong style mask, the cushion is degraded or simply because the mask's straps aren't adjusted correctly. If leakage occurs, dry air from the room can leak in while humidification escapes. The result is reduced humidification within the circuit and resulting in dry throat and mouth. Finally, beyond factors involving the PAP machine and mask, dry mouth can also be caused or worsened by dehydration. The general recommendation to during eight 8 oz. glasses of water a day might be too little for many people. When people drink large amounts of coffee or other caffeine beverages, or sweat a lot during the day, making sure to rehydrate is an important part of PAP therapy. Provided the patient with a list of local home care stores where positive airway pressure (PAP) units, accoutrement, and services are available. Home care store selection is based on patient's insurance carrier. Patient will setup an appointment with [facility] for supplies and pressure adjustments. A major predictor of success with use of PAP is follow-up with both the respiratory supplier and the treating physician. The download results can show the treating physician information about adherence to treatment, residual AHI while on treatment and presence of large mask leakage. This information is especially helpful if the patient has residual sleepiness despite treatment. General information on sleep disordered breathing, evaluation of sleep disordered breathing, treatment with PAP therapy, and living with PAP therapy were covered. We discussed with the patient the impact of weight on: Sleep disordered breathing Hypertension Hyperlipidemia Prediabetes JAMIE We discussed with the patient the benefit of PAP therapy on: Sleep disordered breathing Hypertension Prediabetes JAMIE Educated the patient on sleep hygiene measures. Relaxing rituals to rest easy, understanding foods with positive and negative impact on sleep, creating a peaceful sleep environment, timing of exercise, using herbal sleep aids, and practicing sleep-friendly meditation were covered. To determine how much sleep is needed, the patient will assess where he falls on the spectrum, examine what lifestyle factors such as work schedules and stress are affecting the quality and quantity of sleep. In general, adults need 7-9 hours of sleep. Educated the patient regarding foods that promote sleep. These include but are not limited to cherries, bananas, toast, oatmeal, and warm milk. Educated the patient regarding foods and drinks to avoid before bedtime. These include but are not limited to aged cheese, chocolate, spicy foods, tomato-based sauces, soy, ginseng tea and processed meat. Advocated influenza vaccination annually and pneumonia vaccination in 2027. Advocated weight loss through diet and exercise. Patient's ideal body weight according to height and gender is up to 200 lbs. Encouraged patient to adjust caloric intake to maintain/achieve ideal body weight, emphasizing on fruits, vegetables, whole grains, and fat-free or low-fat products. These include lean meats, poultry, fish, beans, eggs, and nuts and foods that are low in saturated fats, trans-fats, cholesterol, salt (sodium), and glycemic index. Stressed the importance of regular exercise up to the patient's capacity limits. In this case, we recommend 20 min daily walking, 2 days a week of resistance training. Patient to monitor BP daily and bring records to PCP for further management. Follow-up: 3 months, November 2023 [facility] Not available 09/08/2023 16:39:13 12/09/2023 12/09/2023 Assessment: Early REM onset Very severe OSAHS, AHI = 58 PLMD Iron deficiency Plan: The following were reviewed and explained to the patient: [facility] home sleep study 03/27/23 AHI = 58, supine AHI = 65 [facility] titration sleep study 04/25/23 sleep onset = 8 minutes, REM onset = 37.5 minutes, ResMed medium AirFit N30i nasal mask @ 11 cmH2O, PLMI = 36 Ferritin 05/19/23 32 ng/mL Ferritin 08/11/23 27 ng/mL Ferritin 11/07/23 28 ng/mL PAP compliance downloaded and interpreted x 20 minutes. Data reviewed and explained to the patient. Average apnea/hypopnea index (AHI) is 1.6. Patient used PAP > 4 hours 63% of the time. PAP is set at 11 cmH2O. PAP will remain at 11 cmH2O. Keep ramp start at 6 cmH2O. Keep ramp duration at 15 minutes, Keep EPR +1. Keep humidifier level at automatic mode. Keep tube temperature at automatic mode. Oxygen supplementation: none Patient is benefiting from PAP therapy. Encouraged patient to maintain PAP use more than 70% of the time. Statement of PAP use and benefits will be sent to the home care store. Non-pharmacologic therapy options for periodic limb movement disorder include avoidance of aggravating drugs and substances, mental alerting activities, short daily hemodialysis for patients in renal failure, exercise, leg massage, stretching calf muscles, use of a weighted blanket and applied heat. Patient will cut down on alcohol consumption and caffeine intake. BUN, Creatinine, Vitamin E, Vitamin B12, RBC folate, Iron, TIBC, ESR, Magnesium, Hgb and Hct levels are within normal limits. Patient will continue FeSO4 325 mg + Vit C 500 mg twice daily to keep the ferritin > 75 ng/ml. The patient will be referred to hematology Charles Whitt MD @ [address], [place] [address], [place] , FAX for iron infusion. Check ferritin one week before return. We will hold off on dopaminergic therapy for now. Educated the patient on problems and solutions associated with positive airway pressure (PAP) use. Difficulty tolerating pressure, mask leaks, intolerance of interface, nasal congestion, claustrophobic response, dry mouth, and unintentional mask removal during sleep were covered. Patient experiences claustrophobic response. Patient will practice wearing PAP mask daily while awake and undergo PAP desensitization. We will check fit of patient's mask and provide a sleeker alternative as necessary. Dry mouth is a normal occurrence for people who just start out on PAP therapy because they are not used to air blowing in to the throat to hold open. Dry mouth is exacerbated for people who wear nasal PAP mask and whose jaw drops open during sleep. Not only does this create a much less efficient therapy because of leakage, it also causes dry mouth. There are a couple solutions to help prevent this type of problem. A simple solution would be to wear a chinstrap which essentially holds the jaw in place. A second solution would be a switch to a full face mask which covers both the nose and mouth. Although this is another easy solution, using a full face mask for some could seem claustrophobic or confining. There is no silver bullet solution as no single mask is right for everybody. Sometimes it takes a bit of experimentation to find a PAP mask which best meets the patient's needs as well as fits comfortably. Another tactic is to use a humidifier on your PAP machine. Most new PAP machines have integrated humidifiers. Humidification is everett when dealing with symptoms of dry mouth because the humidifier can supply both warm and room temperate air. Even a small amount of humidity in the airflow will help nasal passages to stay hydrated. If a person is using both a full face mask and a PAP machine with a heated humidifier and is still experiencing dry mouth, an ill-fitted PAP mask might be causing the problem. Leakage can be caused by a mask that is to large or small, the wrong style mask, the cushion is degraded or simply because the mask's straps aren't adjusted correctly. If leakage occurs, dry air from the room can leak in while humidification escapes. The result is reduced humidification within the circuit and resulting in dry throat and mouth. Finally, beyond factors involving the PAP machine and mask, dry mouth can also be caused or worsened by dehydration. The general recommendation to during eight 8 oz. glasses of water a day might be too little for many people. When people drink large amounts of coffee or other caffeine beverages, or sweat a lot during the day, making sure to rehydrate is an important part of PAP therapy. Provided the patient with a list of local home care stores where positive airway pressure (PAP) units, accoutrement, and services are available. Home care store selection is based on patient's insurance carrier. Patient will setup an appointment with [facility] for supplies and pressure adjustments. A major predictor of success with use of PAP is follow-up with both the respiratory supplier and the treating physician. The download results can show the treating physician information about adherence to treatment, residual AHI while on treatment and presence of large mask leakage. This information is especially helpful if the patient has residual sleepiness despite treatment. General information on sleep disordered breathing, evaluation of sleep disordered breathing, treatment with PAP therapy, and living with PAP therapy were covered. We discussed with the patient the impact of weight on: Sleep disordered breathing Hypertension Hyperlipidemia Prediabetes JAMIE We discussed with the patient the benefit of PAP therapy on: Sleep disordered breathing Hypertension Prediabetes JAMIE Educated the patient on sleep hygiene measures. Relaxing rituals to rest easy, understanding foods with positive and negative impact on sleep, creating a peaceful sleep environment, timing of exercise, using herbal sleep aids, and practicing sleep-friendly meditation were covered. To determine how much sleep is needed, the patient will assess where he falls on the spectrum, examine what lifestyle factors such as work schedules and stress are affecting the quality and quantity of sleep. In general, adults need 7-9 hours of sleep. Educated the patient regarding foods that promote sleep. These include but are not limited to cherries, bananas, toast, oatmeal, and warm milk. Educated the patient regarding foods and drinks to avoid before bedtime. These include but are not limited to aged cheese, chocolate, spicy foods, tomato-based sauces, soy, ginseng tea and processed meat. Advocated influenza vaccination annually and pneumonia vaccination in 2027. Advocated weight loss through diet and exercise. Patient's ideal body weight according to height and gender is up to 200 lbs. Encouraged patient to adjust caloric intake to maintain/achieve ideal body weight, emphasizing on fruits, vegetables, whole grains, and fat-free or low-fat products. These include lean meats, poultry, fish, beans, eggs, and nuts and foods that are low in saturated fats, trans-fats, cholesterol, salt (sodium), and glycemic index. Stressed the importance of regular exercise up to the patient's capacity limits. In this case, we recommend 20 min daily walking, 2 days a week of resistance training. Patient to monitor BP daily and bring records to PCP for further management. Follow-up: 3 months, February 2024 Not available 12/09/2023 16:40:58 03/11/2024 03/11/2024 Assessment: Early REM onset Very severe OSAHS, AHI = 58 PLMD Iron deficiency Plan: The following were reviewed and explained to the patient: [facility] home sleep study 03/27/23 AHI = 58, supine AHI = 65 [facility] titration sleep study 04/25/23 sleep onset = 8 minutes, REM onset = 37.5 minutes, ResMed medium AirFit N30i nasal mask @ 11 cmH2O, PLMI = 36 [facility] hematology note 01/08/24 low ferritin evaluation [facility] hematology note 01/22/24 decreased FeSO4 + Vit C to once daily Ferritin 05/19/23 32 ng/mL Ferritin 08/11/23 27 ng/mL Ferritin 11/07/23 28 ng/mL Ferritin 01/08/24 31 ng/mL PAP compliance downloaded and interpreted x 20 minutes. Data reviewed and explained to the patient. Average apnea/hypopnea index (AHI) is 2.2. Patient used PAP > 4 hours 45% of the time. PAP is set at 11 cmH2O. PAP will remain at 11 cmH2O. Keep ramp start at 6 cmH2O. Keep ramp duration at 15 minutes, Keep EPR +1 ramp only. Keep humidifier level at automatic mode. Keep tube temperature at automatic mode. Oxygen supplementation: none Patient is benefiting from PAP therapy. Encouraged patient to maintain PAP use more than 70% of the time. Statement of PAP use and benefits will be sent to the home care store. Non-pharmacologic therapy options for periodic limb movement disorder include avoidance of aggravating drugs and substances, mental alerting activities, short daily hemodialysis for patients in renal failure, exercise, leg massage, stretching calf muscles, use of a weighted blanket and applied heat. Patient will cut down on alcohol consumption and caffeine intake. BUN, Creatinine, Vitamin E, Vitamin B12, RBC folate, Iron, TIBC, ESR, Magnesium, Hgb and Hct levels are within normal limits. Patient will continue FeSO4 325 mg + Vit C 500 mg twice daily to keep the ferritin > 75 ng/ml. Check ferritin one week before return. We will hold off on dopaminergic therapy for now. Educated the patient on problems and solutions associated with positive airway pressure (PAP) use. Difficulty tolerating pressure, mask leaks, intolerance of interface, nasal congestion, claustrophobic response, dry mouth, and unintentional mask removal during sleep were covered. Patient experiences claustrophobic response. Patient will practice wearing PAP mask daily while awake and undergo PAP desensitization. We will check fit of patient's mask and provide a sleeker alternative as necessary. Dry mouth is a normal occurrence for people who just start out on PAP therapy because they are not used to air blowing in to the throat to hold open. Dry mouth is exacerbated for people who wear nasal PAP mask and whose jaw drops open during sleep. Not only does this create a much less efficient therapy because of leakage, it also causes dry mouth. There are a couple solutions to help prevent this type of problem. A simple solution would be to wear a chinstrap which essentially holds the jaw in place. A second solution would be a switch to a full face mask which covers both the nose and mouth. Although this is another easy solution, using a full face mask for some could seem claustrophobic or confining. There is no silver bullet solution as no single mask is right for everybody. Sometimes it takes a bit of experimentation to find a PAP mask which best meets the patient's needs as well as fits comfortably. Another tactic is to use a humidifier on your PAP machine. Most new PAP machines have integrated humidifiers. Humidification is everett when dealing with symptoms of dry mouth because the humidifier can supply both warm and room temperate air. Even a small amount of humidity in the airflow will help nasal passages to stay hydrated. If a person is using both a full face mask and a PAP machine with a heated humidifier and is still experiencing dry mouth, an ill-fitted PAP mask might be causing the problem. Leakage can be caused by a mask that is to large or small, the wrong style mask, the cushion is degraded or simply because the mask's straps aren't adjusted correctly. If leakage occurs, dry air from the room can leak in while humidification escapes. The result is reduced humidification within the circuit and resulting in dry throat and mouth. Finally, beyond factors involving the PAP machine and mask, dry mouth can also be caused or worsened by dehydration. The general recommendation to during eight 8 oz. glasses of water a day might be too little for many people. When people drink large amounts of coffee or other caffeine beverages, or sweat a lot during the day, making sure to rehydrate is an important part of PAP therapy. Provided the patient with a list of local home care stores where positive airway pressure (PAP) units, accoutrement, and services are available. Home care store selection is based on patient's insurance carrier. Patient will setup an appointment with [facility] for supplies and pressure adjustments. A major predictor of success with use of PAP is follow-up with both the respiratory supplier and the treating physician. The download results can show the treating physician information about adherence to treatment, residual AHI while on treatment and presence of large mask leakage. This information is especially helpful if the patient has residual sleepiness despite treatment. General information on sleep disordered breathing, evaluation of sleep disordered breathing, treatment with PAP therapy, and living with PAP therapy were covered. We discussed with the patient the impact of weight on: Sleep disordered breathing Hypertension Hyperlipidemia Prediabetes JAMIE We discussed with the patient the benefit of PAP therapy on: Sleep disordered breathing Hypertension Prediabetes JAMIE Educated the patient on sleep hygiene measures. Relaxing rituals to rest easy, understanding foods with positive and negative impact on sleep, creating a peaceful sleep environment, timing of exercise, using herbal sleep aids, and practicing sleep-friendly meditation were covered. To determine how much sleep is needed, the patient will assess where he falls on the spectrum, examine what lifestyle factors such as work schedules and stress are affecting the quality and quantity of sleep. In general, adults need 7-9 hours of sleep. Educated the patient regarding foods that promote sleep. These include but are not limited to cherries, bananas, toast, oatmeal, and warm milk. Educated the patient regarding foods and drinks to avoid before bedtime. These include but are not limited to aged cheese, chocolate, spicy foods, tomato-based sauces, soy, ginseng tea and processed meat. Advocated influenza vaccination annually and pneumonia vaccination in 2027. Advocated weight loss through diet and exercise. Patient's ideal body weight according to height and gender is up to 200 lbs. Encouraged patient to adjust caloric intake to maintain/achieve ideal body weight, emphasizing on fruits, vegetables, whole grains, and fat-free or low-fat products. These include lean meats, poultry, fish, beans, eggs, and nuts and foods that are low in saturated fats, trans-fats, cholesterol, salt (sodium), and glycemic index. Stressed the importance of regular exercise up to the patient's capacity limits. In this case, we recommend 20 min daily walking, 2 days a week of resistance training. Patient to monitor BP daily and bring records to PCP for further management. Follow-up: 6 months, August 2024 [facility] Not available 03/11/2024 16:01:03 09/08/2024 09/08/2024 Assessment: Early REM onset Very severe OSAHS, AHI = 58 PLMD Iron deficiency Plan: The following were reviewed and explained to the patient: [facility] home sleep study 03/27/23 AHI = 58, supine AHI = 65 [facility] titration sleep study 04/25/23 sleep onset = 8 minutes, REM onset = 37.5 minutes, ResMed medium AirFit N30i nasal mask @ 11 cmH2O, PLMI = 36 [facility] hematology note 01/08/24 low ferritin evaluation [facility] hematology note 01/22/24 decreased FeSO4 + Vit C to once daily Dr. Whitt hematology note 05/25/24 ff up in 01/2025 with repeat ferritin Ferritin 05/19/23 32 ng/mL Ferritin 08/11/23 27 ng/mL Ferritin 11/07/23 28 ng/mL Ferritin 01/08/24 31 ng/mL Ferritin 05/20/24 61 ng/mL Ferritin 08/17/24 51 ng/mL PAP compliance downloaded and interpreted x 20 minutes. Data reviewed and explained to the patient. Average apnea/hypopnea index (AHI) is 1.5. Patient used PAP > 4 hours 53% of the time. PAP is set at 11 cmH2O. PAP will remain at 11 cmH2O. Keep ramp start at 6 cmH2O. Keep ramp duration at 15 minutes. Keep EPR +1 ramp only. Keep humidifier level at automatic mode. Keep tube temperature at automatic mode. Oxygen supplementation: none Patient is benefiting from PAP therapy. Encouraged patient to maintain PAP use more than 70% of the time. Statement of PAP use and benefits will be sent to the home care store. Non-pharmacologic therapy options for periodic limb movement disorder include avoidance of aggravating drugs and substances, mental alerting activities, short daily hemodialysis for patients in renal failure, exercise, leg massage, stretching calf muscles, use of a weighted blanket and applied heat. Patient will cut down on alcohol consumption and caffeine intake. BUN, Creatinine, Vitamin E, Vitamin B12, RBC folate, Iron, TIBC, ESR, Magnesium, Hgb and Hct levels are within normal limits. Patient will continue FeSO4 325 mg + Vit C 500 mg twice daily to keep the ferritin > 75 ng/ml. Check ferritin one week before return. We will hold off on dopaminergic therapy for now. Educated the patient on problems and solutions associated with positive airway pressure (PAP) use. Difficulty tolerating pressure, mask leaks, intolerance of interface, nasal congestion, claustrophobic response, dry mouth, and unintentional mask removal during sleep were covered. Patient experiences claustrophobic response. Patient will practice wearing PAP mask daily while awake and undergo PAP desensitization. We will check fit of patient's mask and provide a sleeker alternative as necessary. Dry mouth is a normal occurrence for people who just start out on PAP therapy because they are not used to air blowing in to the throat to hold open. Dry mouth is exacerbated for people who wear nasal PAP mask and whose jaw drops open during sleep. Not only does this create a much less efficient therapy because of leakage, it also causes dry mouth. There are a couple solutions to help prevent this type of problem. A simple solution would be to wear a chinstrap which essentially holds the jaw in place. A second solution would be a switch to a full face mask which covers both the nose and mouth. Although this is another easy solution, using a full face mask for some could seem claustrophobic or confining. There is no silver bullet solution as no single mask is right for everybody. Sometimes it takes a bit of experimentation to find a PAP mask which best meets the patient's needs as well as fits comfortably. Another tactic is to use a humidifier on your PAP machine. Most new PAP machines have integrated humidifiers. Humidification is everett when dealing with symptoms of dry mouth because the humidifier can supply both warm and room temperate air. Even a small amount of humidity in the airflow will help nasal passages to stay hydrated. If a person is using both a full face mask and a PAP machine with a heated humidifier and is still experiencing dry mouth, an ill-fitted PAP mask might be causing the problem. Leakage can be caused by a mask that is to large or small, the wrong style mask, the cushion is degraded or simply because the mask's straps aren't adjusted correctly. If leakage occurs, dry air from the room can leak in while humidification escapes. The result is reduced humidification within the circuit and resulting in dry throat and mouth. Finally, beyond factors involving the PAP machine and mask, dry mouth can also be caused or worsened by dehydration. The general recommendation to during eight 8 oz. glasses of water a day might be too little for many people. When people drink large amounts of coffee or other caffeine beverages, or sweat a lot during the day, making sure to rehydrate is an important part of PAP therapy. Provided the patient with a list of local home care stores where positive airway pressure (PAP) units, accoutrement, and services are available. Home care store selection is based on patient's insurance carrier. Patient will setup an appointment with [facility] for supplies and pressure adjustments. A major predictor of success with use of PAP is follow-up with both the respiratory supplier and the treating physician. The download results can show the treating physician information about adherence to treatment, residual AHI while on treatment and presence of large mask leakage. This information is especially helpful if the patient has residual sleepiness despite treatment. General information on sleep disordered breathing, evaluation of sleep disordered breathing, treatment with PAP therapy, and living with PAP therapy were covered. We discussed with the patient the impact of weight on: Sleep disordered breathing Hypertension Hyperlipidemia Prediabetes JAMIE We discussed with the patient the benefit of PAP therapy on: Sleep disordered breathing Hypertension Prediabetes JAMIE Educated the patient on sleep hygiene measures. Relaxing rituals to rest easy, understanding foods with positive and negative impact on sleep, creating a peaceful sleep environment, timing of exercise, using herbal sleep aids, and practicing sleep-friendly meditation were covered. To determine how much sleep is needed, the patient will assess where he falls on the spectrum, examine what lifestyle factors such as work schedules and stress are affecting the quality and quantity of sleep. In general, adults need 7-9 hours of sleep. Educated the patient regarding foods that promote sleep. These include but are not limited to cherries, bananas, toast, oatmeal, and warm milk. Educated the patient regarding foods and drinks to avoid before bedtime. These include but are not limited to aged cheese, chocolate, spicy foods, tomato-based sauces, soy, ginseng tea and processed meat. Advocated influenza vaccination annually and pneumonia vaccination in 2027. Advocated weight loss through diet and exercise. Patient's ideal body weight according to height and gender is up to 200 lbs. Encouraged patient to adjust caloric intake to maintain/achieve ideal body weight, emphasizing on fruits, vegetables, whole grains, and fat-free or low-fat products. These include lean meats, poultry, fish, beans, eggs, and nuts and foods that are low in saturated fats, trans-fats, cholesterol, salt (sodium), and glycemic index. Stressed the importance of regular exercise up to the patient's capacity limits. In this case, we recommend 20 min daily walking, 2 days a week of resistance training. Patient to monitor BP daily and bring records to PCP for further management. Follow-up: 6 months, February 2025 [facility] Not available 09/08/2024 15:38:59 Plan of Treatment Reminders Order Date Submit Date Provider Last Modified By Organization Details Last Modified Time Details Appointments Follow Up 2024 02:30P Catracho Hoover MD Not available Not available Not available Lab ferritin, serum or plasma 2024 025 [email or web address] [facility] (Lab), [address] [place], [address], 09/08/2024 15:30:42 ferritin, serum or plasma 2023 025 [email or web address] [facility] (Lab), [address] [place], [address], 08/18/2024 00:32:14 ferritin, serum or plasma 2023 024 [email or web address] 2 [facility] (Lab), [address] [place], [address], 06/02/2024 09:04:15 ferritin, serum or plasma 2023 024 [email or web address] 5 [facility] (Lab), [address] [place], [address], 11/19/2023 09:13:29 ferritin, serum or plasma 2022 024 [facility] [address] [place], [address], 08/11/2023 21:26:34 Referral hematolog ist referral 2023 024 [email or web address] 2 Charles Peri WALTER, [address], [place], [address], 04/28/2024 14:56:00 Procedures None recorded. Surgeries None recorded. Imaging None recorded. Medication Orders ferrous sulfate 325 mg (65 mg iron) tablet 2024 025 [id number] [address] [place], [address], 09/08/2024 15:30:44 Vitamin C 500 mg tablet 2024 025 [id number] [address] [place], [address], 09/08/2024 15:30:45 ferrous sulfate 325 mg (65 mg iron) tablet 2023 024 [id number] [address] [place], [address], 03/11/2024 16:03:38 Vitamin C 500 mg tablet 2023 024 [id number] [address] [place], [address], 03/11/2024 20:16:09 ferrous sulfate 325 mg (65 mg iron) tablet 2023 [email or web address] [facility] [id number] [place], [address], 12/09/2023 16:46:44 Vitamin C 500 mg tablet 2023 024 [facility] [address] [place], [address], 12/09/2023 16:46:30 ferrous sulfate 325 mg (65 mg iron) tablet 2023 024 [facility] [address] [place], [address], 09/08/2023 16:39:19 Vitamin C 500 mg tablet 2023 024 [facility] [address] [place], [address], 09/08/2023 16:39:19 ferrous sulfate 325 mg (65 mg iron) tablet 2022 023 [id number] [address] [place], [address], 06/09/2023 16:12:21 Vitamin C 500 mg tablet 2022 023 [id number] [address] [place], [address], 06/09/2023 16:12:21 Patient TargetsNo targets recorded. Patient InstructionsNo instructions recorded. Reason for Referral Referring Physician: Williams Hoover, Pulmonary Disease, Encounter Date: 12/09/2023 Results Created Date Observation Date Name Description Value Unit Range Abnormal Flag Note LastModifiedBy Organization Detail LastModifiedTime 05/13/20 23 04/25/2023 polys omnog zia, titra tion study No observ ation record ed. [facility] [address] [place], [address], 05/13/2023 12:29:24 Result Notes None recorded. Problems Name Problem SNOMED Code Status Onset Date Resolution Date Notes Provider Name and Address Organization Details Recorded Time Obstructive sleep apnea syndrome 56001250 Active 2022 Williams Hoover MD [address] [facility], [facility] [address], [place], [address] , [facility] 16:58:32 Periodic limb movement disorder 994402741 Active 2022 Williams Hoover MD [address] [facility], [address], [place], [address], [employer] 16:59:12 Iron deficiency 58158686 Active 2022 Williams Hoover MD [address], [address], [place], [address], [facility] 16:09:15 Notes:Medical History: Bilat eral tinnitus Early REM onset Obesity with very severe OSAHS, AHI = 58, 03/27/23, on CPAP c/o IVRC Hypertension Hyperlipidemia Prediabetes JAMIE Hypogonadism BPH Herpes zoster Iron deficiency PLMD Procedure History: Left inguinal herniorrhaphies 1991, 1994, 2020 Left foot surgery 1995 Right knee replacements 2005, 2008 Colonoscopies 2010, 2022 Nasal septoplasty 2012 Bilateral ulnar nerve/CTS release 2016 Right inguinal herniorrhaphy 2020 Cardiac catheterization 2022 Occupational History: Maintenance personnel Problem Notes None recorded. Procedures Surgical History Date Name Laterality Status Provider Name and Address Organization Details Recorded Time Hernia Surgery completed Lashell Moya MA [place] [employer] [facility] 04/17/2023 16:33:36 Hernia Surgery completed Lashell Moya [place] [employer] [facility] 04/17/2023 16:33:49 Hernia Surgery completed Lashell Moya MA [place] [facility] [facility] 04/17/2023 16:34:00 Ankle Surgery completed Lashell Moya [place] [employer] [facility] 04/17/2023 16:34:05 Carpal tunnel completed Lashell Moya MA [place] [employer] [facility] 04/17/2023 16:34:14 Carpal tunnel completed MARIANA Dahl [employer] [facility] 04/17/2023 16:34:15 rhinoseptoplasty completed MARIANA Bee [facility] 04/17/2023 16:34:28 Knee Surgery completed MARIANA Dahl [employer] [employer] [facility] 04/17/2023 16:34:46 Knee Surgery completed Lashell Moya MA [place] [facility] [employer] [employer] [facility] 04/17/2023 16:34:48 angiography completed Lashell Moya MA [facility] 04/17/2023 16:35:31 Back Surgery completed Lashell Moya MA [facility] 09/08/2024 15:19:33 Imaging Results Imaging Date Name Status LastModified by Organiz ation Details LastModified Time 04/25/2023 polysomnogram, titration study completed [facility] [address] [place], [address], 05/13/2023 12:29:24 Procedure Notes None recorded. Medical Equipment None Reported. Allergies Allergen ID Allergen Name Allergen Category Reaction Reaction Severity Criticality Documentation Date Start Date Code Code System Note Provider Name and Address Organization Details Recorded Time 36341 amlodipin e medicatio n swelling Not available Not available 01/14/2024 [id number] RxNorm Williams Hoover MD [address] [facility], [facility] [address], [place], [address] , [employer] 17:30:19 Medications Name Sig Start Date Stop Date Status Note LastModified by Organization Details LastModified Time cyclobenzap rine 10 mg tablet TAKE ONE TABLET BY MOUTH THREE TIMES DAILY NEEDED FOR SPASM active Not Available Not Available No t Available furosemide 40 mg tablet TAKE 1 TABLET BY MOUTH EVERY DAY FOR 7 DAYS active Not Available Not Available No t Available carvedilol 25 mg tablet TAKE 1 TABLET BY MOUTH TWICE A DAY active Not Available Not Available No t Available carvedilol 6.25 mg tablet TAKE 1 TABLET BY MOUTH EVERY 12 HOURS WITH FOOD active Not Available Not Available No t Available Vitamin C 500 mg tablet TAKE 1 TABLET BY MOUTH TWICE A DAY active Not Available Not Available No t Available nitroglycer in 0.3 mg sublingual tablet TAKE 1 TABLET BY MOUTH SUBLINGUA LLY ONCE A DAY NEEDED FOR CHEST PAIN active Not Available Not Available No t Available hydrocodone 5 mg-acetamin ophen 325 mg tablet TAKE 1 OR 2 TABLETS BY MOUTH EVERY 6 HOURS NEEDED FOR PAIN 09/08 completed Not Available Not Available Not Available meloxicam 15 mg tablet TAKE 1 TABLET BY MOUTH EVERY DAY active Not Available Not Available No t Available prednisone 20 mg tablet TAKE 2 TABLETS BY MOUTH EVERY DAY FOR FOUR DAYS, THEN 1 TABLET BY MOUTH EAVERY DAY FOR THREE DAYS 08/12 completed Not Available Not Available Not Available amlodipine 5 mg tablet TAKE 1 TABLET BY MOUTH EVERY DAY 09/07 completed Not Available Not Available Not Available omeprazole 40 mg capsule,del ayed release TAKE 1 CAPSULE BY MOUTH EVERY DAY active Not Available Not Available No t Available tramadol 50 mg tablet TAKE 1 TO 2 TABLETS BY MOUTH EVERY 6 HOURS NEEDED FOR SEVERE PAIN, MAXIMUM 8 TABLETS/D AY 09/08 completed Not Available Not Available Not Available ketorolac 0.5 % eye drops INSTILL 1 DROP INTO RIGHT EYE 3 TIMES A DAY FOR 6 DAYS active Not Available Not Available No t Available terbinafine HCl 250 mg tablet TAKE 1 TABLET BY MOUTH EVERY DAY active Not Available Not Available No t Available BD Luer-José Miguel Syringe 3 mL 23 gauge x 1 1/2 USE 1 SYRINGE ONCE A WEEK FOR 12 WEEK(S) active Not Available Not Available No t Available tamsulosin 0.4 mg capsule TAKE 1 CAPSULE BY MOUTH EVERY DAY active Not Available Not Available No t Available amlodipine 10 mg tablet TAKE 1 TABLET BY MOUTH EVERY DAY 09/07 completed Not Available Not Available Not Available ferrous sulfate 325 mg (65 mg iron) tablet TAKE 1 TABLET BY MOUTH TWICE A DAY active Not Available Not Available No t Available gabapentin 300 mg capsule PLEASE SEE ATTACHED FOR DETAILED DIRECTION S active Not Available Not Available No t Available hydrochloro thiazide 25 mg tablet TAKE 1 TABLET BY MOUTH EVERY DAY active Not Available Not Available No t Available testosteron e cypionate 200 mg/mL intramuscul ar oil INJECT 1 MILLILITE R INTRAMUSC ULARLY ONCE A WEEK active Not Available Not Available No t Available scopolamine 1 mg over 3 days transdermal patch APPLY 1 PATCH EVERY 72 HOURS 05/19 completed Not Available Not Available Not Available methylpredn isolone 4 mg tablets in a dose pack TAKE 6 TABLETS ON DAY 1 DIRECTED ON PACKAGE AND DECREASE BY 1 TAB EACH DAY FOR A TOTAL OF 6 DAYS 04/17 completed Not Available Not Available Not Available BD Luer-José Miguel Syringe 3 mL 21 gauge x 1 1/2 USE 1 SYRINGE ONCE A WEEK WITH TESTOSTER ONE 04/17 completed Not Available Not Available Not Available irbesartan 300 mg tablet TAKE 1 TABLET BY MOUTH EVERY DAY active Not Available Not Available No t Available Vitals Date Recorded Body height Body mass index (BMI) Body weight Body temperature Heart rate Oxygen saturation Oxygen saturation in Arterial blood by Pulse oximetry Systolic blood pressure Diastolic blood pressure Provider Name and Address Organization Details Last Updated DateTime 3 185.42 cm 30.6 kg/m2 752979. 43 g 98.2 [degF] 92 /min 96 % 96 % 126 mm[Hg] 74 mm[Hg] Lashell Moya MA [facility] 16:09:11 Date Recorded Heart rate Respiratory rate Provider N dolores and Address Organization Details Last Updated DateTime 06/09/2023 92 /min 15 /min Williams Hoover MD [address] [facility], [address], [facility] 06/09/2023 16:12:06 Date Recorded Body height Body mass index (BMI) Body weight Body temperature Heart rate Oxygen saturation Oxygen saturation in Arterial blood by Pulse oximetry Systolic blood pressure Diastolic blood pressure Provider Name and Address Organization Details Last Updated DateTime 4 185.42 cm 31.4 kg/m2 256465. 98 g 98.6 [degF] 70 /min 98 % 98 % 128 mm[Hg] 78 mm[Hg] Lashell Moya MA [facility] 4 16:33:44 Date Recorded Heart rate Respiratory rate Provider N dolores and Address Organization Details Last Updated DateTime 09/08/2023 70 /min 15 /min Williams Hoover MD [address] [facility], [place], [address], [facility] [employer] 09/08/2023 16:36:26 Date Recorded Body height Body mass index (BMI) Body weight Heart rate Systolic blood pressure Diastolic blood pressure Provider Name and Address Organization Details Last Updated DateTime 4 185.42 cm 30.5 kg/m2 670113. 84 g 96 /min 126 mm[Hg] 70 mm[Hg] José Luis Silvestre CMA [facility] [employer] 4 16:01:34 Date Recorded Body temperature Oxygen saturation Oxygen saturation in Arterial blood by Pulse oximetry Heart rate Respiratory rate Provider Name and Address Organization Details Last Updated DateTime 4 97.6 [degF] 93 % 93 % 96 /min 14 /min Williams Hoover MD [address] [facility], [address], [place], [address], [employer] [facility] [employer] 4 16:33:28 Date Recorded Body height Body mass index (BMI) Body weight Heart rate Oxygen saturation Oxygen saturation in Arterial blood by Pulse oximetry Body temperature Systolic blood pressure Diastolic blood pressure Provider Name and Address Organization Details Last Updated DateTime 4 185.42 cm 29.7 kg/m2 188100. 28 g 94 /min 95 % 95 % 97.7 [degF] 124 mm[Hg] 70 mm[Hg] José Luis Silvestre CMA [facility] [employer] 4 15:36:30 Date Recorded Heart rate Respiratory rate Provider Asiya bernal and Address Organization Details Last Updated DateTime 03/11/2024 94 /min 15 /min Williams Hoover MD [address] [facility], [address], [place], [address], [place] [employer] [employer] [facility] [employer] 03/11/2024 16:06:24 Date Recorded Body height Body mass index (BMI) Body weight Body temperature Heart rate Oxygen saturation Oxygen saturation in Arterial blood by Pulse oximetry Systolic blood pressure Diastolic blood pressure Provider Name and Address Organization Details Last Updated DateTime 5 185.42 cm 37.7 kg/m2 616715. 42 g 98.2 [degF] 77 /min 96 % 96 % 124 mm[Hg] 80 mm[Hg] Lashell Moya MA [place] [facility] [employer] [employer] [facility] [employer] 5 15:23:16 Date Recorded Heart rate Respiratory rate Provider Asiya bernal and Address Organization Details Last Updated DateTime 09/08/2024 77 /min 14 /min Williams Hoover MD [address] [email or web address], [address], [place], [address], [place] [facility] [employer] [facility] [employer] 09/08/2024 15:26:10 Social History Question Answer Notes LastModified by Organizat ion Details LastModified Time Tobacco Smoking Status Never Smoker Lashell Moya MA null, [employer] [facility] [employer] 04/17/2023 16:30:19 What Is Your Level Of Alcohol Consumption? Occasional Information not available 04/17/2023 What Is Your Level Of Caffeine Consumption? Heavy Information not available 04/17/2023 In The 14 Days Before Symptom Onset, Have You Had Close Contact With A Laboratory-confirm ed COVID-19 While That Case Was Ill? No Information n ot available 04/17/2023 In The 14 Days Before Symptom Onset, Have You Had Close Contact With A Person Who Is Under Investigation For COVID-19 While That Person Was Ill? No Information not available 04/17/2023 Are You Currently Employed? Yes Information not available 04/17/2023 What Type Of Diet Are You Following? REGULAR Information n ot available 04/17/2023 Do You Have An Electrostatic Air Filter? 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 Yes Information not available 04/17/2023 Do You Have A Humidifier? Yes Information not available 04/17/2023 Do You Have Moisture Problems In Your Home? No Information not available 04/17/2023 What Was The Date Of Your Most Recent Tobacco Screening? 09/08/2024 Information not available 09/08/2024 Do You Have Any Pets? Yes Information not available 04/17/2023 Do You Use Your Seat Belt Or Car Seat Routinely? Yes Information not available 04/17/2023 Do You Have Smoke And Carbon Monoxide Detectors In Your Home? Yes Information not available 04/17/2023 Are You Passively Exposed To Smoke? No Information no t available 04/17/2023 Do You Feel Stressed (tense, Restless, Nervous, Or Anxious, Or Unable To Sleep At Night)? DI0039-1 Information not available 04/17/2023 Do You Use Any Illicit Or Recreational Drugs? No Information not available 04/17/2023 Do You Use Sunscreen Routinely? No Information not available 04/17/2023 Have You Recently Traveled Abroad? No Information not available 04/17/2023 Do You Have Any Dietary Restrictions? No Information not available 04/17/2023 Do You Or Have You Ever Used Any Other Forms Of Tobacco Or Nicotine? No [email or web address] Information not available 05/19/2023 Sex: Unknown Functional Status Question Answer Note LastModified by Organizat ion Details LastModified Time What is your exercise level? Occasional Information not available 04/17/2023 Mental Status None recorded. Family History Relationship Description Onset Age of this Age Resolved Age Notes LastModified by Organization Details LastModified Time Maternal Grandfather Coronary artery bypass graft [facility] Not available 16:59:45 Mother Malignant tumor of breast [facility] Not available 2022 17:00:01 Medical History No medical history recorded. Past Encounters Encounter ID Performer Location Encounter Start Date Encounter Closed Date Diagnosis/Indication Diagnosis SNOMED-CT Code Diagnosis ICD10 Code Diagnosis Note [id number] [facility] [place] [id number] 04/17/2023 16:14:34 04/17/2023 17:15:49 Obstructive sleep apnea syndrome 53806985 G47.33 G47.30 G47.36 G47.61 Periodic l imb movement disorder 030559435 G47.61 [id number] [facility] [place] [id number] 05/19/2023 09:04:39 05/20/2023 08:38:43 Obstructive sleep apnea syndrome 59698311 G47.33 Periodic l imb movement disorder 942022116 G47.61 D50.8 E83.42 [id number] MD [facility] [place] [id number] 06/09/2023 15:54:17 06/10/2023 09:07:00 Obstructive sleep apnea syndrome 54949965 G47.33 Iron deficiency 62601434 E61.1 [id number] Williams Hoover MD [facility] [place] [id number] 09/08/2023 16:02:15 09/09/2023 08:40:51 Obstructive sleep apnea syndrome 28919758 G47.33 Iron deficiency 34906996 E61.1 [id number] Williams Hoover MD [facility] [address] [place] [address] 0 12/09/2023 15:53:24 12/10/2023 08:57:44 Obstructive sleep apnea syndrome 53442264 G47.33 Iron deficiency 60722499 E61.1 [id number] Williams Hoover MD [facility] [address] [place] [address] 0 03/11/2024 15:26:25 03/12/2024 11:27:14 Obstructive sleep apnea syndrome 55017973 G47.33 Iron deficiency 96674547 E61.1 [id number] Williams Hoover MD [place] [id number] 09/08/2024 14:59:16 09/13/2024 16:08:30 Obstructive sleep apnea syndrome 05663732 G47.33 Iron deficiency 62839221 E61.1 Health Concerns Section Related Observation LastModified by Organization Detai ls LastModified Time None Recorded Concern Status LastModified by Organization Details LastModified Time None Recorded Advance Directives Directive None Recorded Payers Encounter Date Sequence Insurance Name Policy Number Policy Nation Covered Member ID Nation Member ID Guarantor Name 06/09/2023 1 [place] [id number] Reji E Demay [id number] Reji E Demay 09/08/2023 1 [place] [id number] Reji E Demay [id number] Reji E Demay 12/09/2023 1 [place] [id number] Reji E Demay [id number] Reji E Demay 03/11/2024 1 [place] [id number] Reji E Demay [id number] Reji E Demay 09/08/2024 1 [place] [id number] Reji E Demay [id number] Reji E Demay Notes Date Note Type Note Provider Name and Address Organization Details Recorded Time 06/09/2023 text/html Primary care/Ref erring provider: Reji Cook MD [facility] sleep [facility] on 03/27/23, AHI = 58, supine AHI = 65. During the [facility] titration sleep study on 04/25/23, sleep onset = 8 minutes, REM onset = 37.5 minutes. PLMI = 36 and he is here to go over his lab workup. The patient uses a ResMed AirSense 11 autoset unit with heated humidification. The patient does not need the ramp to start low and go up slowly on the pressure. There is some xerostomia in a.m. There is no hose/mask condensation with water. The patient wears a ResMed medium AirFit N30i nasal mask without chin strap. There is no claustrophobia, no nostril/nose bridge irritation, no facial rash, no facial numbness, no nosebleeding. The patient feels more refreshed upon waking and daytime alertness is improved. Energy levels are sustained for the remainder of the day. At home, the patient sleeps from 9 pm to 4 am and wakes up with an alarm. Snoring: heavy, since .Snorting: noChoking: noCoughing: noGasping: yesGagging: noSighing: noWitnessed apnea: yesTwitching or jerking of leg(s), arm(s), body, head: yesTeeth grinding: noTeeth clenching: noSleeptalking: noSleepwalking: noSleep crying: noBedwetting: noTongue/lip/gum/cheek biting: noSleeping with open mouth: yesSleep paralysis: noHypnagogic hallucinations: noHypnopompic hallucinations: noVivid dreams: yesDifficulty with sleep onset: yesDifficulty with sleep maintenance: yesSleep interruptions: nocturia x 2Patient wakes up with: fatigue, xerostomiaDaytime cataplexy: noMorning hypersomnolence: yesAfternoon hypersomnolence: yesCaffeine sources in diet: tea 500 mL per day, soda 4 cans per day, chocolate 1/4 candy per day Associated medical and psychiatric conditions:Congestive heart failure: noCoronary artery disease: noMyocardial infarction: noHypertension: yesStroke: noBronchial asthma: noChronic obstructive pulmonary disease: noDepression: noBipolar disorder: noAnxiety: noPanic disorder: noPosttraumatic stress disorder: noAttention deficit and hyperactivity disorder: noObsessive Compulsive disorder: noSchizophrenia: noSchizoaffective disorder: noPersonality disorder: noChronic analgesic use: noChronic sedative/hypnotic use: no EPWORTH SLEEPINESS SCALE (ESS) CHANCE OF DOZING SCORE0 = would never doze1 = slight chance of dozing2 = moderate chance of dozing3 = high chance of dozing SITUATION AND CHANCE OF DOZINGSitting and reading - 2Watching television - 2Sitting inactive in a public place (e.g. a theater or meeting) - 2As a passenger in a car for an hour without a break - 1Lying down to rest in the afternoon when circumstances permit - 2Sitting and talking to someone - 2Sitting quietly after lunch without alcohol - 2In a car, while stopped for a few minutes in the traffic - 1TOTAL SCORE 14Subjectively, patient has a moderate chance of dozing. Williams Hoover MD [address] [place] [address], [phone], [facility] 06/09/2023 16:24:03 09/08/2023 text/html Primary care/Ref erring provider: Reji Cook MD During the [facility] home sleep study on 03/27/23, AHI = 58, supine AHI = 65. During the [facility] titration sleep study on 04/25/23, sleep onset = 8 minutes, REM onset = 37.5 minutes. PLMI = 36 and he is on iron supplements. At home since 06/25/23, the patient uses a ResMed AirSense 11 autoset unit with heated humidification. The patient does not need the ramp to start low and go up slowly on the pressure. There is some xerostomia in a.m. There is no hose/mask condensation with water. The patient wears a ResMed medium AirFit N30i nasal mask without chin strap. There is no claustrophobia, no nostril/nose bridge irritation, no facial rash, no facial numbness, no nosebleeding. The patient feels more refreshed upon waking and daytime alertness is improved. Energy levels are sustained for the remainder of the day. At home, the patient sleeps from 9 pm to 4 am and wakes up with an alarm. Snoring: heavy, since .Snorting: noChoking: noCoughing: noGasping: yesGagging: noSighing: noWitnessed apnea: yesTwitching or jerking of leg(s), arm(s), body, head: yesTeeth grinding: noTeeth clenching: noSleeptalking: noSleepwalking: noSleep crying: noBedwetting: noTongue/lip/gum/cheek biting: noSleeping with open mouth: yesSleep paralysis: noHypnagogic hallucinations: noHypnopompic hallucinations: noVivid dreams: yesDifficulty with sleep onset: yesDifficulty with sleep maintenance: yesSleep interruptions: nocturia x 2Patient wakes up with: fatigue, xerostomiaDaytime cataplexy: noMorning hypersomnolence: yesAfternoon hypersomnolence: yesCaffeine sources in diet: tea 500 mL per day, soda 4 cans per day, chocolate 1/4 candy per day Associated medical and psychiatric conditions:Congestive heart failure: noCoronary artery disease: noMyocardial infarction: noHypertension: yesStroke: noBronchial asthma: noChronic obstructive pulmonary disease: noDepression: noBipolar disorder: noAnxiety: noPanic disorder: noPosttraumatic stress disorder: noAttention deficit and hyperactivity disorder: noObsessive Compulsive disorder: noSchizophrenia: noSchizoaffective disorder: noPersonality disorder: noChronic analgesic use: noChronic sedative/hypnotic use: no EPWORTH SLEEPINESS SCALE (ESS) CHANCE OF DOZING SCORE0 = would never doze1 = slight chance of dozing2 = moderate chance of dozing3 = high chance of dozing SITUATION AND CHANCE OF DOZINGSitting and reading - 2Watching television - 2Sitting inactive in a public place (e.g. a theater or meeting) - 1As a passenger in a car for an hour without a break - 1Lying down to rest in the afternoon when circumstances permit - 2Sitting and talking to someone - 1Sitting quietly after lunch without alcohol - 1In a car, while stopped for a few minutes in the traffic - 1TOTAL SCORE 11Subjectively, patient has a moderate chance of dozing. Williams Hoover MD [address] [facility], [address], [place], [address], [place] [facility] 09/08/2023 16:44:37 12/09/2023 text/html Primary care/Ref erring provider: Reji Cook MD During the [facility] home sleep study on 03/27/23, AHI = 58, supine AHI = 65. During the [facility] titration sleep study on 04/25/23, sleep onset = 8 minutes, REM onset = 37.5 minutes. PLMI = 36 and he is on iron supplements. At home since 09/08/23, the patient uses a ResMed AirSense 11 autoset unit with heated humidification. The patient does not need the ramp to start low and go up slowly on the pressure. There is some xerostomia in a.m. There is no hose/mask condensation with water. The patient wears a ResMed medium AirFit N30i nasal mask without chin strap. There is no claustrophobia, no nostril/nose bridge irritation, no facial rash, no facial numbness, no nosebleeding. The patient feels more refreshed upon waking and daytime alertness is improved. Energy levels are sustained for the remainder of the day. At home, the patient sleeps from 9 pm to 4 am and wakes up with an alarm. Snoring: heavy, since .Snorting: noChoking: noCoughing: noGasping: yesGagging: noSighing: noWitnessed apnea: yesTwitching or jerking of leg(s), arm(s), body, head: yesTeeth grinding: noTeeth clenching: noSleeptalking: noSleepwalking: noSleep crying: noBedwetting: noTongue/lip/gum/cheek biting: noSleeping with open mouth: yesSleep paralysis: noHypnagogic hallucinations: noHypnopompic hallucinations: noVivid dreams: yesDifficulty with sleep onset: yesDifficulty with sleep maintenance: yesSleep interruptions: nocturia x 2Patient wakes up with: fatigue, xerostomiaDaytime cataplexy: noMorning hypersomnolence: yesAfternoon hypersomnolence: yesCaffeine sources in diet: tea 500 mL per day, soda 4 cans per day, chocolate 1/4 candy per day Associated medical and psychiatric conditions:Congestive heart failure: noCoronary artery disease: noMyocardial infarction: noHypertension: yesStroke: noBronchial asthma: noChronic obstructive pulmonary disease: noDepression: noBipolar disorder: noAnxiety: noPanic disorder: noPosttraumatic stress disorder: noAttention deficit and hyperactivity disorder: noObsessive Compulsive disorder: noSchizophrenia: noSchizoaffective disorder: noPersonality disorder: noChronic analgesic use: noChronic sedative/hypnotic use: no EPWORTH SLEEPINESS SCALE (ESS) CHANCE OF DOZING SCORE0 = would never doze1 = slight chance of dozing2 = moderate chance of dozing3 = high chance of dozing SITUATION AND CHANCE OF DOZINGSitting and reading - 2Watching television - 1Sitting inactive in a public place (e.g. a theater or meeting) - 2As a passenger in a car for an hour without a break - 1Lying down to rest in the afternoon when circumstances permit - 1Sitting and talking to someone - 1Sitting quietly after lunch without alcohol - 0In a car, while stopped for a few minutes in the traffic - 0TOTAL SCORE 8Subjectively, patient has a slight chance of dozing. Williams Hoover MD [address] [place] [address], [address], [place] [facility] 12/09/2023 16:54:53 03/11/2024 text/html Primary care/Ref erring provider: Reji Cook MD During the [facility] home sleep study on 03/27/23, AHI = 58, supine AHI = 65. During the [facility] titration sleep study on 04/25/23, sleep onset = 8 minutes, REM onset = 37.5 minutes. PLMI = 36 and he is on iron supplements. At home since 12/09/23, the patient uses a ResMed AirSense 11 autoset unit with heated humidification. The patient does not need the ramp to start low and go up slowly on the pressure. There is some xerostomia in a.m. There is no hose/mask condensation with water. The patient wears a ResMed medium AirFit N30i nasal mask without chin strap. There is no claustrophobia, no nostril/nose bridge irritation, no facial rash, no facial numbness, no nosebleeding. The patient feels more refreshed upon waking and daytime alertness is improved. Energy levels are sustained for the remainder of the day. At home, the patient sleeps from 9 pm to 4 am and wakes up with an alarm. Snoring: heavy, since .Snorting: noChoking: noCoughing: noGasping: yesGagging: noSighing: noWitnessed apnea: yesTwitching or jerking of leg(s), arm(s), body, head: yesTeeth grinding: noTeeth clenching: noSleeptalking: noSleepwalking: noSleep crying: noBedwetting: noTongue/lip/gum/cheek biting: noSleeping with open mouth: yesSleep paralysis: noHypnagogic hallucinations: noHypnopompic hallucinations: noVivid dreams: yesDifficulty with sleep onset: yesDifficulty with sleep maintenance: yesSleep interruptions: nocturia x 2Patient wakes up with: fatigue, xerostomiaDaytime cataplexy: noMorning hypersomnolence: yesAfternoon hypersomnolence: yesCaffeine sources in diet: tea 500 mL per day, soda 4 cans per day, chocolate 1/4 candy per day Associated medical and psychiatric conditions:Congestive heart failure: noCoronary artery disease: noMyocardial infarction: noHypertension: yesStroke: noBronchial asthma: noChronic obstructive pulmonary disease: noDepression: noBipolar disorder: noAnxiety: noPanic disorder: noPosttraumatic stress disorder: noAttention deficit and hyperactivity disorder: noObsessive Compulsive disorder: noSchizophrenia: noSchizoaffective disorder: noPersonality disorder: noChronic analgesic use: noChronic sedative/hypnotic use: no EPWORTH SLEEPINESS SCALE (ESS) CHANCE OF DOZING SCORE0 = would never doze1 = slight chance of dozing2 = moderate chance of dozing3 = high chance of dozing SITUATION AND CHANCE OF DOZINGSitting and reading - 2Watching television - 2Sitting inactive in a public place (e.g. a theater or meeting) - 1As a passenger in a car for an hour without a break - 1Lying down to rest in the afternoon when circumstances permit - 1Sitting and talking to someone - 0Sitting quietly after lunch without alcohol - 0In a car, while stopped for a few minutes in the traffic - 0TOTAL SCORE 7Subjectively, patient has a slight chance of dozing. Williams Hoover MD [address] [place] [address], [id number], [place] [facility] 03/11/2024 16:08:11 09/08/2024 text/html Primary care/Ref erring provider: Reji Cook MD During the [facility] home sleep study on 03/27/23, AHI = 58, supine AHI = 65. During the [facility] titration sleep study on 04/25/23, sleep onset = 8 minutes, REM onset = 37.5 minutes. PLMI = 36 and he is on iron supplements. At home since 03/11/24, the patient uses a ResMed AirSense 11 autoset unit with heated humidification. The patient does not need the ramp to start low and go up slowly on the pressure. There is some xerostomia in a.m. There is no hose/mask condensation with water. The patient wears a ResMed medium AirFit N30i nasal mask without chin strap. There is no claustrophobia, no nostril/nose bridge irritation, no facial rash, no facial numbness, no nosebleeding. The patient feels more refreshed upon waking and daytime alertness is improved. Energy levels are sustained for the remainder of the day. At home, the patient sleeps from 9 pm to 4 am and wakes up with an alarm. Snoring: heavy, since .Snorting: noChoking: noCoughing: noGasping: yesGagging: noSighing: noWitnessed apnea: yesTwitching or jerking of leg(s), arm(s), body, head: yesTeeth grinding: noTeeth clenching: noSleeptalking: noSleepwalking: noSleep crying: noBedwetting: noTongue/lip/gum/cheek biting: noSleeping with open mouth: yesSleep paralysis: noHypnagogic hallucinations: noHypnopompic hallucinations: noVivid dreams: yesDifficulty with sleep onset: yesDifficulty with sleep maintenance: yesSleep interruptions: nocturia x 2Patient wakes up with: fatigue, xerostomiaDaytime cataplexy: noMorning hypersomnolence: yesAfternoon hypersomnolence: yesCaffeine sources in diet: tea 500 mL per day, soda 4 cans per day, chocolate 1/4 candy per day Associated medical and psychiatric conditions:Congestive heart failure: noCoronary artery disease: noMyocardial infarction: noHypertension: yesStroke: noBronchial asthma: noChronic obstructive pulmonary disease: noDepression: noBipolar disorder: noAnxiety: noPanic disorder: noPosttraumatic stress disorder: noAttention deficit and hyperactivity disorder: noObsessive Compulsive disorder: noSchizophrenia: noSchizoaffective disorder: noPersonality disorder: noChronic analgesic use: noChronic sedative/hypnotic use: no EPWORTH SLEEPINESS SCALE (ESS) CHANCE OF DOZING SCORE0 = would never doze1 = slight chance of dozing2 = moderate chance of dozing3 = high chance of dozing SITUATION AND CHANCE OF DOZINGSitting and reading - 1Watching television - 1Sitting inactive in a public place (e.g. a theater or meeting) - 1As a passenger in a car for an hour without a break - 1Lying down to rest in the afternoon when circumstances permit - 1Sitting and talking to someone - 0Sitting quietly after lunch without alcohol - 0In a car, while stopped for a few minutes in the traffic - 0TOTAL SCORE 5Subjectively, patient has a slight chance of dozing. Williams Hoover MD [address] [place] [address], [phone], [place] [facility] 09/08/2024 15:39:04
[2024-11-04 13:37] VITALS: BP 162/74; PULSE 89; RESP 18; TEMP 36.4; O2SAT 97
--- OUTSIDE RECORDS SUMMARY | 2024-11-04 13:52 | XMS_ITS | Referral Summary ---
Author Organization [facility] Address [address] [place] [address] Care Team Providers Care Refueling Ramp Attendant Name Role Phone Reji Cook MD Primary Care Provider [phone] Social History Tobacco Use Types Packs/Day Years Used Date Smoking Tobacco: Never Assessed Personal Safety Answer Date Recorded Getting School Help Needed Not on file 07/16 Sex and Gender Information Value Date Recorded Sex Assigned at Not on file Legal Sex Male 7:09 PM [employer] Gender Identity Not on file Sexual Orientation Not on file Plan of Treatment Not on file Insurance [employer] Care Teams Refueling Ramp Attendant Relationship Specialty Start Date End Date Reji Cook MD [address] [place] [id number] PCP - General Family Medicine 07/16/23
--- OUTSIDE RECORDS SUMMARY | 2024-11-04 13:52 | XMS_ITS | Clinical Summary ---
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 Gender Identity Not on file Sexual Orientation Not on file Plan of Treatment Health Maintenance Due Date Last Done Comments Colon Cancer Screening-Colonoscopy 1963 Depression Screening 1963 Hepatitis C Screening 1963 Prostate Cancer Screening-PSA 1963 DTaP/Tdap/Td Vaccine (1 - Tdap) 1974 Hepatitis B Screening 1981 Regular Well Visit/Exam 18-64 1981 Covid-19 Vaccine ( season) 2024 03/29/2023, 05/31/2022, 06/26/2021, Additional history exists Influenza Vaccine (#1) 2024 3, 05/31/2022, 06/14/2021, Additional history exists Zoster Vaccine Completed 10/15/2021, 07/28/2021 Pneumococcal vaccine <65 Aged Out No longer eligible based on patient's age to complete this topic Insurance [employer] Care Teams Masking Machine Operator Relationship Specialty Start Date End Date Reji Cook MD [address] [place] [address] PCP - General Family Medicine 07/16/23
--- NOTE | 2024-11-04 14:12 | ED_ITS ---
HPI - Back Pain/Injury General Chief Complaint: Back Pain/Injury Stated Complaint: back pain Time Seen by Provider: 11/04/24 13:46 History of Present Illness HPI Narrative: 59-year-old male with a past medical history including hypertension, hyperlipidemia, recent lumbar laminectomy in March of last year. Patient presents to the emergency department with left-sided paraspinal pain radiating down his leg. Patient states he took a muscle relaxer at home as well as an Advil without any significant improvement. No difficulties with urination, no incontinence, no saddle anesthesias or footdrop. He is ambulatory without any difficulty but states that is worse when he ambulates. 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 No other trauma or injury. No recent steroids. No complications from the surgery and he has been doing well afterwards. Related Data Home Medications ?Medication ?Instructions ?Recorded ?Confirmed ?Last Taken ?Type irbesartan 300 mg tablet 300 mg PO DAILY 08/02/20 10/06/20 09/19/20 History omeprazole 40 mg capsule,delayed 40 mg PO DAILY 08/02/20 10/06/20 09/18/20 History release tamsulosin 0.4 mg capsule (Flomax) 0.4 mg PO DAILY 08/02/20 10/06/20 09/18/20 History testosterone 1 % (25 mg/2.5 gram) 1 packet transdermal DAILY 08/02/20 10/06/20 09/19/20 History transdermal gel packet (AndroGel) Adult Probiotic 1 cap PO DAILY 09/12/20 10/06/20 09/16/20 History Calcium-Vitamin D 1 cap PO DAILY 09/12/20 10/06/20 09/16/20 History Daily Multivitamin 1 cap PO DAILY 09/12/20 10/06/20 09/16/20 History Fish Oil 1 cap PO DAILY 09/12/20 10/06/20 09/16/20 History turmeric 1 cap PO DAILY 09/12/20 10/06/20 09/16/20 History Allergies Allergy/AdvReac Type Severity Reaction Status Date / Time lisinopril AdvReac Mild Cough Verified 11/04/24 13:31 Review of Systems Review of Systems: As reviewed above [facility] Past Medical History Medical History History of bronchitis High cholesterol HTN (hypertension) GERD (gastroesophageal reflux disease) Surgical History Surgical History H/O inguinal hernia repair Laparoscopic right inguinal hernia repair with Progrip mesh, da Gisella assisted History of colonoscopy Approximately 9 years ago Hx of left inguinal hernia repair Open left inguinal hernia repair Open recurrent left inguinal hernia repair with mesh Hx of foot surgery Hx of right knee surgery History of carpal tunnel release Hx of decompression of ulnar nerve Family History Family History Father MVA (motor vehicle accident) Mother Breast cancer Grandparent Breast cancer Stomach cancer Sibling Obesity Social History Social History Smoking status: Never smoker Alcohol intake: current Substance use: never Living arrangements: with family Occupation/Education: occupation 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 Mucous membranes moist. NECK: Supple. CHEST: [Clear to auscultation. No respiratory distress.] HEART: [Regular rate and rhythm]. No murmur heard. [Normal peripheral pulses.] ABDOMEN: [Soft, nondistended], [nontender], [No rigidity or guarding] EXTREMITIES: Normal range of motion. [No edema.] Able to ambulate in the examination room. Reproducible pain with palpation left lower paraspinal muscles but no midline tenderness. Surgical scars are well healed. SKIN: Warm, dry, no rash. NEURO: [No focal deficits]. Alert and oriented [x3.]. Normal gait, strength and sensation intact in bilateral lower extremities, no footdrop. No saddle anesthesias or numbness in the legs. PSYCH: [Normal mood and affect.] Course Vital Signs Vital signs: Vital Signs Temperature 36.4 C 11/04/24 13:37 Pulse Rate 89 11/04/24 13:37 Respiratory Rate 18 11/04/24 13:37 Blood Pressure 162/74 H 11/04/24 13:37 Pulse Oximetry 97 11/04/24 13:37 Temperature 36.4 C 11/04/24 13:37 Pulse Rate 89 11/04/24 13:37 Respiratory Rate 18 11/04/24 13:37 Blood Pressure 162/74 H 11/04/24 13:37 Pulse Oximetry 97 11/04/24 13:37 MDM - Back Pain/Injury MDM Narrative Medical decision making narrative: 59-year-old male presenting to the emergency room with left lower paraspinal muscle pain. History of lumbar laminectomy in March of last year. Took Tylenol and a muscle relaxer at home without any relief. States that he does manual labor and heavy lifting at work and thinks that may have exacerbated his pain. Pain is in the left-sided lower paraspinal muscles and reproducible with palpation. He is able to ambulate in the examination room without discomfort, no sensory deficits, no motor deficits. No cauda equinus signs or symptoms at this time. Vital signs are unremarkable without any significant hypertension, tachycardia, fever or hypoxia. Given his reassuring examination a CT of the lumbar region was obtained to rule out any kind of complications from his lumbar surgery or any significant disc bulging. Patient was given intramuscular injections of Dilaudid and Decadron as well as topical lidocaine and oral Robaxin. He felt improved after treatment plan. CT scan shows prior laminectomy changes and 10 degree lumbar levoscoliosis with moderate spondylosis. No acute osseous abnormalities. Patient had improvement after treatment here and will be discharged home with a Medrol Dosepak and muscle relaxers. Patient will follow-up with regular doctor and given return precautions. Medical Records Attestation: I reviewed the patient's medical records. Imaging Data Attestation: I personally reviewed and interpreted this imaging study as follows: My impression: Impressions Lumbar Spine CT 11/04/24 14:45 IMPRESSION: 1. 10 degrees lumbar levoscoliosis with moderate spondylosis. 2. Change of prior L2-L3 right hemilaminectomy and L4-L5 left-sided hemilaminectomy. Discharge Plan Discharge Clinical Impression: Lumbago, Lumbar spondylosis, Strain of lumbar region Patient Disposition: Home Condition: Stable Instructions: Antibiotic Form, Lumbar Radiculopathy (ED), Back Pain (ED), Lower Back Exercises (ED) Additional Instructions: Your CT images show lumbar disc bulging and postsurgical changes from your procedure. No urgent or emergent concerns however. We will send you home with a combination of steroids and additional muscle relaxers to help get through the acute pain. Until you can follow-up with your regular doctor. Return to the ER if you have increased pain in your back, you develop lower extremity weakness/numbness/paralysis, you have numbness or tingling in your private parts, or you are unable to control your ability to urinate/stool. Patient Language: Czech Prescriptions: New methocarbamol 750 mg tablet 750 mg PO TID PRN (Reason: pain) Qty: 20 0RF lidocaine 5 % adhesive patch,medicated 1 patch topical DAILY Qty: 15 0RF Rx Instructions: leave on most painful area for up to 12 hrs methylprednisolone [Medrol (Minh)] 4 mg tablets,dose pack See Rx Instructions .ROUTE .COMPLEX Qty: 21 0RF Rx Instructions: orally per package directions No Action tamsulosin [Flomax] 0.4 mg capsule 0.4 mg PO DAILY omeprazole 40 mg capsule,delayed release(DR/EC) 40 mg PO DAILY irbesartan 300 mg tablet 300 mg PO DAILY testosterone [AndroGel] 1 % (25 mg/2.5gram) gel in packet 1 packet transdermal DAILY Adult Probiotic 1 cap PO DAILY Calcium-Vitamin D 1 cap PO DAILY Daily Multivitamin 1 cap PO DAILY Fish Oil 1 cap PO DAILY turmeric 1 cap PO DAILY Follow-up/Referrals: Yvonne,Sejal Rodriguez APRN [Primary Care Provider] - Time of Disposition: 15:47
--- NOTE | 2024-11-04 14:18 | PC.NURSE ---
pt to ct at this time
[2024-11-04] MEDS: LIDOCAINE 5% PATCH 1 PATCH TRANSDERM (14:39)
[2024-11-04] MEDS: dexAMETHasone SOD PHOS INJ 10 MG/ML 1 ML VIAL IM (14:39)
[2024-11-04] MEDS: HYDROmorphone HCL INJ (*CRX) 2 MG/ML VIAL 1 MG IM (14:40)
[2024-11-04] MEDS: methocarbamoL 750 MG TABLET PO (14:40)
== END 2024-11-04 15:53 | disposition home or self-care (01) ==
PROVIDERS: Emergency Provider Student in an Organized Health Care Education/Training Program; PCP Nurse Practitioner
DX: M47.816 Spondylosis without myelopathy or radiculopathy, lumbar region (principal); S39.012A Strain of muscle, fascia and tendon of lower back, initial encounter; M96.1 Postlaminectomy syndrome, not elsewhere classified; I10 Essential (primary) hypertension; E78.5 Hyperlipidemia, unspecified; K21.9 Gastro-esophageal reflux disease without esophagitis
CPT/HCPCS: 72131; 96372; 99284; A9270; J1100; J1171